=== PATIENT | male | born 1935 | race Caucasian/White ===

== ENCOUNTER 2017-02-13 09:31 | Inpatient (IN) | payer MEDICARE ==
[~2017-02-13] VITALS: Ht 190.5 cm; Wt 105.7 kg
[~2017-02-13 09:31] MED LIST: ACET25TA4 PO; GLIP10TA6 PO; LEVO100T5 PO; METF1000 PO; PROP60TA PO; ZOLP5TAB3 PO
[2017-02-13] MEDS ORDERED: LAMO100T PO (10:27)
[2017-02-13] MEDS ORDERED: SPIRCAP INH (10:27)
[2017-02-13 10:29] VITALS: BP 152/77; PULSE 62; RESP 20; TEMP 97.8; O2SAT 95
[2017-02-13] MEDS ORDERED: SODIUM CHLORIDE 0.9% INJ 100 ML ONE ×2 (10:45)
[2017-02-13] MEDS ORDERED: ceFAZolin INJ 1,000 MG VIAL ONE (10:45)
[2017-02-13] MEDS ORDERED: ceFAZolin 1,000 MG/NS 100 ML IV SCH ×2 (10:45)
[2017-02-13] MEDS ORDERED: LACTATED RINGER'S 1000 ML INJ 1,000 ML IV SCH (10:45)
[2017-02-13] MEDS ORDERED: CLINDAMYCIN PHOS 600 MG/4 ML VIAL ONE (10:45)
[2017-02-13 10:51] LABS: AUTOMATED NEUTROPHIL # 5.7 TH/MM3 (1.8-7.7); BASOPHIL # 0.1 TH/MM3 (0-0.2); BASOPHIL % 1.1 % (0.0-2.0); EOSINOPHIL # 0.7 TH/MM3 (0-0.4); EOSINOPHIL % 8.1 % (0.0-4.0); HEMO FLAGS DIFF FINAL; LYMPHOCYTE # 1.9 TH/MM3 (1.0-4.8); MEAN CELL VOLUME 88.4 FL (80.0-100.0); MEAN CORPUSCULAR HEMOGLOBIN 30.2 PG (27.0-34.0); MEAN CORPUSCULAR HGB CONC 34.2 % (32.0-36.0); MONO % 7.2 % (0.0-8.0); NEUT % 62.6 % (16.0-70.0); PLATELET COUNT 296 TH/MM3 (150-450); RED CELL DISTRIBUTION WIDTH 12.9 % (11.6-17.2); WHITE BLOOD COUNT 9.1 TH/MM3 (4.0-11.0)
[2017-02-13 11:00] LABS: PROTHROMBIN TIME - PATIENT 11.6 SEC (9.8-11.6)
[2017-02-13 11:01] LABS: APTT (PATIENT) 28.5 SEC (24.3-30.1)
[2017-02-13 11:06] LABS: BICARBONATE 26.4 MEQ/L (21.0-32.0); POTASSIUM 4.7 MEQ/L (3.5-5.1)
--- NOTE | 2017-02-13 11:19 | RADRPT ---
EXAM DATE/TIME: 02/13/2017 10:47 [facility] COMPARISON: No previous studies available for comparison. INDICATIONS : Evaluate for pneumonia, pneumothorax, or communicable disease. Pre op for cervical surgery today. MEDICAL HISTORY : Hypertension. Carcinoma, prostatic. Diabetes. SURGICAL HISTORY : None. ENCOUNTER: Initial ACUITY: 1 day PAIN SCORE: 0/10 LOCATION: Bilateral chest FINDINGS: The exam demonstrates mild elevation of the left hemidiaphragm. The lungs are clear. The heart is nor mal in size. Visualized bony structures are intact. CONCLUSION: 1. Mild elevation of the left hemidiaphragm. No acute abnormality. Kasi Curtis MD on February 13, 2017 at 11:16 Board Certified Radiologist. This report was verified electronically.
[2017-02-13] MEDS ORDERED: ONDANSETRON HCL 4 MG/2 ML VIAL IV PUSH ONE (12:00)
[2017-02-13] MEDS ORDERED: NORMOSOL R INJ 1,000 ML IV ONE (12:00)
[2017-02-13] MEDS ORDERED: PROPOFOL 200 MG/20 ML AMP IV ONE (12:00)
[2017-02-13] MEDS ORDERED: ePHEDrine/NS 25 MG/5 ML SYR IV ONE (12:00)
[2017-02-13] MEDS ORDERED: GADODIAMIDE PF 287 MG/ML 20 ML VIAL (for RAD MRI) IV ONE (12:44)
[2017-02-13] MEDS ORDERED: GENTAMICIN SULFATE 80 MG/2 ML VIAL ONE (12:57)
[2017-02-13] MEDS ORDERED: THROMBIN (TOPICAL) 5,000 UNIT VIAL ONE (12:57)
[2017-02-13] MEDS ORDERED: LIDOCAINE 1%/EPINEPHrine 1:100,000 SOLN 20 ML VIAL ONE (12:57)
[2017-02-13] MEDS ORDERED: GELFOAM SIZE 100 ONE (12:57)
[2017-02-13] MEDS ORDERED: MIDAZOLAM HCL 2 MG/2 ML VIAL ONE (13:05)
[2017-02-13] MEDS ORDERED: FAMOTIDINE 20 MG/2 ML VIAL ONE (13:05)
[2017-02-13] MEDS ORDERED: fentaNYL CITRATE 250 MCG/5 ML AMP ONE ×2 (13:05→17:10)
[2017-02-13] MEDS ORDERED: ACETAMINOPHEN 1000 MG/100 ML VIAL IV ONE (13:05)
--- NOTE | 2017-02-13 14:28 | RADRPT ---
EXAM DATE/TIME: 02/13/2017 11:56 [facility] COMPARISON: No previous studies available for comparison. INDICATIONS : Myelopathy. Inability to walk. CONTRAST: 20 cc Omniscan (gadodiamide) IV MEDICAL HISTORY : Carcinoma, prostate. SURGICAL HISTORY : Angioplasty. ENCOUNTER: Initial ACUITY: 3 day PAIN SCORE: 0/10 LOCATION: t-spine TECHNIQUE: Multiplanar multisequence MRI of the thoracic spine was performed. FINDINGS: VERTEBRA: The marrow signal in the thoracic vertebrae is inhomogeneous in nonspecific fashion. I do not see f ocal metastatic disease. There is mild uncinate ridging at T1-T2 and T2-T3 with moderate spinal stenosis. There is mild ridgi ng at T7-T8 with mild spinal stenosis. CONCLUSION: Mild spinal stenosis the upper thoracic spine. This does not appear to be significan t enough to cause neuropathy. MRI of the cervical spine may be of benefit. There appear to be signi ficant degenerative changes in the cervical spine on the airport maintenance laborer film. Ezekiel Curtis MD FACR on February 13, 2017 at 14:21 Board Certified Radiologist. This report was verified electronically.
--- NOTE | 2017-02-13 14:39 | EKG ---
Date Performed: 02/13/2017 Time Performed: 10:54:52 PTAGE: 81 years EKG: Sinus rhythm MARKED LEFT AXIS DEVIATION ABNORMAL ECG NO PREVIOUS TRACING DOCTOR: Abiodun sEquivel Interpretating Date/Time 02/13/2017 14:37:08
[2017-02-13] MEDS ORDERED: *morphine SULFATE 8 MG/ML PERIprocedure ONLY ONE (17:27)
[2017-02-13] MEDS: 1/2 NS + KCL 20 MEQ INJ 1,000 ML IV SCH (17:39)
[2017-02-13] MEDS ORDERED: SODIUM CHLORIDE 0.9% FLUSH 5 ML FLUSH IVF PRN (17:45)
--- NOTE | 2017-02-13 17:46 | RADRPT ---
EXAM DATE/TIME: 02/13/2017 14:15 [facility] COMPARISON: No previous studies available for comparison. INDICATIONS : Neck pain. MEDICAL HISTORY : None. SURGICAL HISTORY : None. ENCOUNTER: Initial ACUITY: 1 day PAIN SCORE: Non-responsive. LOCATION: Bilateral neck FINDINGS: Two projection examination was performed. Status post anterior cervical lower cervical spine. There a ppears to be good alignment of the fusion. The hardware is grossly intact.. CONCLUSION: Good position and alignment on this postoperative study. Marcus Freeman MD on February 13, 2017 at 17:43 Board Certified Radiologist. This report was verified electronically.
[2017-02-13] MEDS ORDERED: HYDROmorphone HCL PF 1 MG/ML VIAL IV PRN (18:30)
[2017-02-13] MEDS ORDERED: MORPHINE SULFATE 4 MG/ML INJ IV PRN (18:30)
[2017-02-13] MEDS ORDERED: DEXTROSE 50% IN WATER 50 ML VIAL(D50) IV PUSH PRN (18:30)
[2017-02-13] MEDS ORDERED: GLUCAGON 1 MG/ML VIAL OTHER PRN (18:30)
[2017-02-13] MEDS ORDERED: NALOXONE HCL 0.4 MG/ML AMP IV PRN (18:30)
[2017-02-13 18:34] LABS: AUTOMATED NEUTROPHIL # 10.5 TH/MM3 (1.8-7.7); BASOPHIL # 0.1 TH/MM3 (0-0.2); BASOPHIL % 1.2 % (0.0-2.0); EOSINOPHIL # 0.1 TH/MM3 (0-0.4); HEMATOCRIT 37.2 % (39.0-51.0); HEMO FLAGS DIFF FINAL; LYMPH % 6.5 % (9.0-44.0); LYMPHOCYTE # 0.8 TH/MM3 (1.0-4.8); MEAN CELL VOLUME 89.3 FL (80.0-100.0); MEAN CORPUSCULAR HGB CONC 33.6 % (32.0-36.0); MONO % 2.7 % (0.0-8.0); NEUT % 88.6 % (16.0-70.0); PLATELET COUNT 260 TH/MM3 (150-450); RED BLOOD COUNT 4.17 MIL/MM3 (4.50-5.90); RED CELL DISTRIBUTION WIDTH 12.8 % (11.6-17.2); WHITE BLOOD COUNT 11.8 TH/MM3 (4.0-11.0)
[2017-02-13 18:52] LABS: BICARBONATE 24.2 MEQ/L (21.0-32.0); POTASSIUM 5.1 MEQ/L (3.5-5.1)
[2017-02-13 19:08] VITALS: BP 189/83; PULSE 61; RESP 18; TEMP 96.7; O2SAT 94
--- NOTE | 2017-02-13 19:20 | PD.OP ---
Operative Report Date of Surgery: February 13, 2017 Preoperative Diagnosis: (1) Cervical disc disease with myelopathy 1. Cervical spondylosis and degenerative disc disease 2. Cervical myelopathy 3. Cervical stenosis Postoperative Diagnosis: (1) Cervical disc disease with myelopathy 1. Cervical spondylosis and degenerative disc disease 2. Cervical myelopathy 3. Cervical stenosis Procedure: 1. C6-7 anterior cervical discectomy, resection posterior osteophyte disc complex for spinal cord decompression, bilateral foraminotomy-microtechnique 2. C6-7 anterior cervical interbody fusion, composite allograft bone 3. C6-7 anterior cervical instrumentation Anesthesia: Gen. endotracheal Surgeon: Martin Alvarez Practice Office Associate(s): Linden Olsen Operation and Findings: Procedure in detail: The patient was brought into the operating room and positioned in supine position on the 3080 table with the head and neck in neutral position. Saba catheter was placed. Lines were established by Anesthesia. Gen. endotracheal anesthesia was induced without difficulty, taking care not to significantly flex or extend the patient's neck during intubation and positioning. Leads for intraoperative neuro monitoring were placed and a baseline study obtained. All extremities were appropriately padded. The neck and upper chest were shaved with clippers and sterilely prepped and draped. Appropriate timeout procedure was performed with all personnel present and in agreement 1% Xylocaine with epinephrine was used for local infiltration over the incision site which was made transversely at the left C6-7 level and carried sharply down through the platysma muscle. The exposure was continued medial to the sternocleidomastoid muscle and carotid artery, and lateral to the trachea and esophagus. The prevertebral fascia was elevated away from the anterior longitudinal ligament with a Kitner sponge. The longus coli muscle on each side was elevated with the Monge elevator. The self-retaining retractor was placed with the blades beneath the longus coli muscle on each side. The appropriate levels were confirmed with intraoperative C-arm and preoperative imaging studies. The microscope was brought into place and used for the remainder of the procedure including the closure. The 14 mm distraction pins were used as needed for gentle distraction during the procedure. The procedure was performed at the C6-7 level. The anterior osteophyte was resected with the Leksell rongeur. The disc and annulus was incised with a 15 blade knife and discectomy performed with pituitary biopsy forceps and straight and angled curettes. The TPS drill with the 5 mm barrel bur was used to decorticate the endplates and removed the majority of the osteophyte along the anterior spinal canal as well as the right and left uncovertebral joint. The thin ligament dissector was used to free up the posterior annulus and ligament from the vertebral body margin. The remainder of the resection of the posterior annulus and ligament as well as the posterior osteophyte and bilateral uncovertebral joint was performed with the 2 and 3 mm thin footplate Kerrison rongeurs. A component of herniated nucleus pulposus was encountered posterior to the annulus and was lifted away from the thecal sac with the thickened ligament dissector and removed. There was a large area of calcified posterior longitudinal ligament just posterior to the superior left C7 vertebral body causing severe compression on the anterior thecal sac. This was carefully freed up and lifted from the thecal sac and adjacent vertebral body with a thin ligament dissector and further resected with the thin footplate Kerrison rongeur. Significant posterior osteophyte was encountered and extensively removed. The posterior vertebral bodies were undercut with the Kerrison rongeur and the TPS drill with the 4 mm jd bur as needed to fully decompress the anterior spinal canal. The appropriate size 9 mm V G2 bone graft was then placed at each level with a good fit of the graft. The blunt nerve hook was used to probe beneath the bone graft to ensure that there was no impingement on the thecal sac or exiting nerve roots. The appropriate size Precision anterior cervical plate was then chosen and the bone screws were placed with the 14 mm fixed screws at the caudal most level and the 14 mm variable screws at the cephalad level of the decompression. The screws were firmly secured and the locking cams engaged. The entire construct was checked with intraoperative C-arm and felt to be satisfactory. The 10 Serbian drain was brought out through a small incision in the left lower neck and secured to the skin with nylon suture and attached to sterile suction. The closure was performed with 3-0 Vicryl running for the platysma and interrupted for the subcutaneous closure, with 4-0 Vicryl running for the subcuticular closure. A dressing of sterile Mastisol, Steri-Strips, and Primapore dressing was placed. The patient was placed into a cervical collar, and taken to recovery room in stable condition. All counts were correct at the end of the case. Estimated blood loss was 100 cc No specimen was sent to pathology. Intraoperative neuro monitoring remained stable during the procedure. Martin Alvarez MD February 13, 2017 19:20
[2017-02-13 19:40] VITALS: O2SAT 95
[2017-02-13] MEDS: lamoTRIgine 100 MG TAB PO SCH (19:52)
[2017-02-13] MEDS: PROPRANOLOL HCL LA 60 MG CAP PO SCH (19:52)
[2017-02-13] MEDS: ACETAMINOPHEN/HYDROcodone 325 MG/10 MG TAB PO PRN ×2 (19:53→23:57)
[2017-02-13] MEDS: INSULIN NovoLIN REGULAR SUPPLEMENTAL SCALE SQ SCH (20:12)
[2017-02-13] MEDS: SODIUM CHLORIDE 0.9% FLUSH 5 ML FLUSH IVF SCH (21:00)
[2017-02-13] MEDS ORDERED: [UNRECOGNIZED DRUG - OTHER] PO SCH (21:00)
[2017-02-13] MEDS: ZOLPIDEM TARTRATE 5 MG TAB PO PRN (22:28)
[2017-02-14] VITALS (7 sets, daily range): BP systolic 125–169; BP diastolic 60–82; PULSE 58–74; RESP 18–19; TEMP 95.3–97.3; O2SAT 93–98
[2017-02-14] MEDS: LEVOTHYROXINE SODIUM 100 MCG TAB PO SCH (05:24)
[2017-02-14] MEDS: ACETAMINOPHEN/HYDROcodone 325 MG/5 MG TAB PO PRN ×3 (05:25→18:55)
[2017-02-14] MEDS: INSULIN NovoLIN REGULAR SUPPLEMENTAL SCALE SQ SCH ×4 (06:30→20:18)
[2017-02-14 07:22] LABS: AUTOMATED NEUTROPHIL # 10.6 TH/MM3 (1.8-7.7); BASOPHIL % 0.3 % (0.0-2.0); EOSINOPHIL % 0.1 % (0.0-4.0); HEMATOCRIT 36.8 % (39.0-51.0); HEMO FLAGS DIFF FINAL; LYMPH % 9.3 % (9.0-44.0); LYMPHOCYTE # 1.2 TH/MM3 (1.0-4.8); MEAN CORPUSCULAR HEMOGLOBIN 30.1 PG (27.0-34.0); MEAN CORPUSCULAR HGB CONC 33.5 % (32.0-36.0); MONO % 6.6 % (0.0-8.0); NEUT % 83.7 % (16.0-70.0); PLATELET COUNT 297 TH/MM3 (150-450); RED BLOOD COUNT 4.09 MIL/MM3 (4.50-5.90); RED CELL DISTRIBUTION WIDTH 12.7 % (11.6-17.2); WHITE BLOOD COUNT 12.6 TH/MM3 (4.0-11.0)
[2017-02-14 07:52] LABS: BICARBONATE 28.3 MEQ/L (21.0-32.0); POTASSIUM 4.6 MEQ/L (3.5-5.1)
[2017-02-14] MEDS: metFORMIN HCL 500 MG TAB PO SCH ×2 (08:30→17:55)
[2017-02-14] MEDS: lamoTRIgine 100 MG TAB PO SCH ×2 (08:30→20:19)
[2017-02-14] MEDS: glipiZIDE 10 MG TAB PO SCH (08:30)
[2017-02-14] MEDS: PROPRANOLOL HCL LA 60 MG CAP PO SCH ×2 (08:30→20:21)
[2017-02-14] MEDS: TIOTROPIUM BROMIDE 18 MCG INH INH SCH (09:00)
[2017-02-14] MEDS: SODIUM CHLORIDE 0.9% FLUSH 5 ML FLUSH IVF SCH ×2 (09:00→20:21)
--- NOTE | 2017-02-14 10:55 | HHI.NSPN ---
(Thang Davidson) Note Status Status: Progress Note (Thang Davidson) Interval History Interval History 02/13: The patient presented to the operating for an ACDF at the C6-7 level. Post -operatively he was admitted to a regular med/surg floor. 02/14: This morning the patient is awake & alert. He has some aching to the back of the neck. He does endorse some hoarseness but no difficulty swallowing. During the night he did have an episode that he describe like an electric shock that went from the neck down to the necks but has not had anything similar since. He does endorse intermittent numbness to the extremities. He stated Occupational Therapy felt the patient had some upper extremity weakness but he did not feel he did. (Thang Davidson) Labs, Micro, & Vital Signs Results Allergies Coded Allergies Type Severity Reaction Last Updated Verified No Known Allergies 02/10/17 No Recent Impressions Thoracic Spine MRI 02/13/17 1018 Signed Impressions: Service Date/Time: Monday, February 13, 2017 11:56 - CONCLUSION: Mild spinal stenosis the upper thoracic spine. This does not appear to be significant enough to cause neuropathy. MRI of the cervical spine may be of benefit. There appear to be significant degenerative changes in the cervical spine on the performance test engineer film. Ezekiel Curtis MD FACR Chest X-Ray 02/13/17 1018 Signed Impressions: Service Date/Time: Monday, February 13, 2017 10:47 - CONCLUSION: 1. Mild elevation of the left hemidiaphragm. No acute abnormality. Kasi Curtis MD Cervical Spine X-Ray 02/13/17 0000 Signed Impressions: Service Date/Time: Monday, February 13, 2017 14:15 - CONCLUSION: Good position and alignment on this postoperative study. Marcus Freeman MD //////175/// 06:00 18:00 06:00 18:00 06:00 18:00 Intake Total 800 ml 460 ml 480 ml Output Total 450 ml 565 ml 790 ml Balance 350 ml -105 ml -310 ml Intake Oral 360 ml 480 ml IV Total 100 ml Other 800 ml Output Urine Total 350 ml 525 ml 775 ml Drainage Total 40 ml 15 ml Estimated Blood Loss 100 ml # Bowel Movements 0 0 Laboratory Tests Test 02/13/17 02/13/17 02/14/17 10:30 18:21 05:47 White Blood Count 9.1 TH/MM3 11.8 TH/MM3 12.6 TH/MM3 Red Blood Count 4.30 MIL/MM3 4.17 MIL/MM3 4.09 MIL/MM3 Hemoglobin 13.0 GM/DL 12.5 GM/DL 12.3 GM/DL Hematocrit 38.0 % 37.2 % 36.8 % Mean Corpuscular Volume 88.4 FL 89.3 FL 90.0 FL Mean Corpuscular Hemoglobin 30.2 PG 30.0 PG 30.1 PG Mean Corpuscular Hemoglobin 34.2 % 33.6 % 33.5 % Concent Red Cell Distribution Width 12.9 % 12.8 % 12.7 % Platelet Count 296 TH/MM3 260 TH/MM3 297 TH/MM3 Mean Platelet Volume 7.8 FL 7.5 FL 7.7 FL Neutrophils (%) (Auto) 62.6 % 88.6 % 83.7 % Lymphocytes (%) (Auto) 21.0 % 6.5 % 9.3 % Monocytes (%) (Auto) 7.2 % 2.7 % 6.6 % Eosinophils (%) (Auto) 8.1 % 1.0 % 0.1 % Basophils (%) (Auto) 1.1 % 1.2 % 0.3 % Neutrophils # (Auto) 5.7 TH/MM3 10.5 TH/MM3 10.6 TH/MM3 Lymphocytes # (Auto) 1.9 TH/MM3 0.8 TH/MM3 1.2 TH/MM3 Monocytes # (Auto) 0.7 TH/MM3 0.3 TH/MM3 0.8 TH/MM3 Eosinophils # (Auto) 0.7 TH/MM3 0.1 TH/MM3 0.0 TH/MM3 Basophils # (Auto) 0.1 TH/MM3 0.1 TH/MM3 0.0 TH/MM3 CBC Comment DIFF FINAL DIFF FINAL DIFF FINAL Differential Comment Prothrombin Time 11.6 SEC Prothromb Time International 1.0 RATIO Ratio Activated Partial 28.5 SEC Thromboplast Time Sodium Level 136 MEQ/L 133 MEQ/L 135 MEQ/L Potassium Level 4.7 MEQ/L 5.1 MEQ/L 4.6 MEQ/L Chloride Level 102 MEQ/L 101 MEQ/L 99 MEQ/L Carbon Dioxide Level 26.4 MEQ/L 24.2 MEQ/L 28.3 MEQ/L Anion Gap 8 MEQ/L 8 MEQ/L 8 MEQ/L Blood Urea Nitrogen 13 MG/DL 12 MG/DL 12 MG/DL Creatinine 0.96 MG/DL 0.90 MG/DL 0.85 MG/DL Estimat Glomerular Filtration 76 ML/MIN 81 ML/MIN 87 ML/MIN Rate Random Glucose 235 MG/DL 249 MG/DL 240 MG/DL Calcium Level 9.7 MG/DL 8.5 MG/DL 8.9 MG/DL Constitutional Vital Signs Date Time Temp Pulse Resp B/P Pulse Ox O2 Delivery O2 Flow Rate FiO2 02/14/17 08:00 95.3 63 19 140/63 96 02/14/17 04:09 96.6 74 18 144/68 93 02/14/17 00:15 96.8 61 18 158/71 94 02/13/17 19:40 95 21 02/13/17 19:08 96.7 61 18 189/83 94 02/13/17 18:30 97.6 64 16 150/72 95 Room Air 02/13/17 18:15 65 15 151/73 94 Room Air 02/13/17 18:00 66 15 153/74 100 Nasal Cannula 2 02/13/17 17:45 65 15 155/79 99 Nasal Cannula 2 02/13/17 17:32 15 02/13/17 17:30 67 15 159/76 98 Nasal Cannula 2 02/13/17 17:15 69 14 161/77 98 Nasal Cannula 4 02/13/17 17:05 98.5 71 12 160/74 96 Nasal Cannula 4 02/14/17 07:00 Intake Total 1740 ml Output Total 1790 ml Balance -50 ml (Thang Davidson) Review of Systems/Exam ROS Constitutional: Patient denies any fever or chills. HEENT: Patient states that he has some hoarseness. He denies any difficulty swallowing and states that he was able to swallow a cracker earlier when tested. Neck: Patient states that he has some aching to the back of the neck. Respiratory: Patient denies any shortness of breath or productive cough. Cardiovascular: Patient denies chest pain, palpitations or irregular heart beat. Gastrointestinal: Patient denies any abdominal pain, nausea, vomiting or bowel incontinence. Genitourinary: Patient states that he has a catheter in place. Extremities: Patient states Occupational Therapy said he was a little weak in the arms but he states it feels normal. He denies any pain to the extremities. Neurological: Patient has had some intermittent numbness to the extremities that comes and goes. He did have an electric shock feeling last night from the neck down to the knees once. He denies any headache or dizziness. Exam General: Awake, readily interacts, normal affect, smiles readily, NAD. Neck: [place] J cervical collar in place. Mild midline TTP, no step offs or deformities, no JVD, trachea midline, intact post-surgical dressing to left anterior neck w/ERICK drain to bulb suction w/serosanguinous drainage. Respiratory: CTAB w/o W/R/R, equal excursion, non-laboured, on RA. Cardiovascular: S1S2 w/RRR w/o M/G/R, radial & pedal pulses 2+ bilaterally, cap refill < 2 sec, no pedal edema. Gastrointestinal: Abdomen soft, nontender, bowel sounds not appreciated. Genitourinary: Saba catheter to BSD w/clear yellow urine. Extremities: REDMAN, NTTP, no evident deformity, discolouration or clubbing. Neurological: AAOx3 Speech clear & appropriate Follows simple commands Sensation decreased to left forearm and BLE. Motor strength: bilateral biceps 5/5, right deltoid & tricep 5/5, left deltoid & tricep 4/5, right hand intrinsics & extensors 4/5 and left 3+/5, right planter extension 4+/5 otherwise BLE 5/5 (Thang Davidson) Medications Current Medications Current Medications Medications (Trade) Dose Ordered Sig/Lyudmila Route Start Time Stop Time Status Last Admin (Lr 1000 ml Inj) 1,000 ml @ 0 mls/hr Q0M IV 02/13/17 10:45 (NS Flush) 2 ml UNSCH PRN IVF 02/13/17 17:45 IV Flush 2 ml 2 ml BID IVF 02/13/17 21:00 (1/2 NS + KCl 20 Meq Inj) 1,000 ml @ 100 mls/hr Q10H IV 02/13/17 17:39 02/13/17 17:39 (Glucotrol) 10 mg DAILY PO 02/14/17 09:00 02/14/17 08:30 (LaMICtal) 100 mg BID PO 02/13/17 21:00 02/14/17 08:30 (Synthroid) 100 mcg DAILY@06 PO 02/14/17 06:00 02/14/17 05:24 (Glucophage) 1,000 mg BIDPC PO 02/14/17 09:00 02/14/17 08:30 (Spiriva Inh) 18 mcg DAILY INH 02/14/17 09:00 (Ambien) 5 mg HS PRN PO 02/13/17 18:15 02/13/17 22:28 Patient Own Medication PT OWN MED: Acetaminophen Pm Extra ... HS PO 02/13/17 21:00 Hold (Inderal La) 60 mg Q12HR PO 02/13/17 21:00 02/14/17 08:30 ([place] 5-325 Mg) 1 tab Q4H PRN PO 02/13/17 18:30 02/14/17 05:25 ([place] 10-325 Mg) 1 tab Q4H PRN PO 02/13/17 18:30 02/13/17 23:57 (Dilaudid Pf Inj) 0.5 mg Q3H PRN IV 02/13/17 18:30 (Morphine Inj) 4 mg Q3H PRN IV 02/13/17 18:30 (Narcan Inj) 0.4 mg UNSCH PRN IV 02/13/17 18:30 (D50w (Vial) Inj) 25 ml UNSCH PRN IV PUSH 02/13/17 18:30 (Glucagon Inj) 1 mg UNSCH PRN OTHER 02/13/17 18:30 (Thang Davidson) Medical Decision Making MDM Remarks (1) Cervical disc disease with myelopathy 1. Cervical spondylosis and degenerative disc disease 2. Cervical myelopathy 3. Cervical stenosis POD # 1 s/p (): 1. C6-7 anterior cervical discectomy, resection posterior osteophyte disc complex for spinal cord decompression, bilateral foraminotomy-microtechnique 2. C6-7 anterior cervical interbody fusion, composite allograft bone 3. C6-7 anterior cervical instrumentation Mild upper thoracic spine stenosis per MRI thoracic spine (Thang Davidson) Plan Plan Remarks Speech Therapy for swallowing PT & OT eval Rehab for additional therapy, inpatient vs SNF Consider d/c'ing the ERICK drain (Thang Davidson) Attending Statement I have personally seen and examined the patient on the date of this note. Pertinent documentation and study results have been reviewed by the undersigned. I have personally developed the treatment plan and performed medical decision making. Agree with findings, exam, and treatment plan as noted above. Patient feels that his legs are somewhat weaker than preoperative. Examination today reveals mostly 3/5 proximal and 4/5 distal or extremity motor function. Have advised a postoperative MRI of the cervical spine to assess the degree of cord compression and edema. Patient is in agreement. Continue therapies (Martin Alvarez MD) Thang Davidson February 14, 2017 10:54 Martin Alvarez MD February 15, 2017 20:38
[2017-02-14] MEDS: ZOLPIDEM TARTRATE 5 MG TAB PO PRN (23:10)
[2017-02-14] MEDS: ACETAMINOPHEN/HYDROcodone 325 MG/10 MG TAB PO PRN (23:10)
[2017-02-14] MEDS: 1/2 NS + KCL 20 MEQ INJ 1,000 ML IV SCH (23:11)
[2017-02-15 00:19] VITALS: BP 149/62; PULSE 72; RESP 18; TEMP 97.7; O2SAT 95
[2017-02-15] MEDS: LEVOTHYROXINE SODIUM 100 MCG TAB PO SCH (06:12)
[2017-02-15] MEDS: ACETAMINOPHEN/HYDROcodone 325 MG/10 MG TAB PO PRN ×3 (06:13→21:42)
[2017-02-15] MEDS: INSULIN NovoLIN REGULAR SUPPLEMENTAL SCALE SQ SCH ×4 (06:31→21:00)
[2017-02-15 08:00] VITALS: BP 153/68; PULSE 70; RESP 19; TEMP 98.1; O2SAT 92
[2017-02-15] MEDS: PROPRANOLOL HCL LA 60 MG CAP PO SCH ×2 (09:00→21:42)
[2017-02-15] MEDS: TIOTROPIUM BROMIDE 18 MCG INH INH SCH (09:00)
[2017-02-15] MEDS: SODIUM CHLORIDE 0.9% FLUSH 5 ML FLUSH IVF SCH ×2 (09:00→21:00)
[2017-02-15] MEDS: lamoTRIgine 100 MG TAB PO SCH ×2 (09:35→21:42)
[2017-02-15] MEDS: glipiZIDE 10 MG TAB PO SCH (09:35)
[2017-02-15] MEDS: metFORMIN HCL 500 MG TAB PO SCH ×2 (09:35→17:08)
[2017-02-15] MEDS: 1/2 NS + KCL 20 MEQ INJ 1,000 ML IV SCH ×2 (09:39→19:39)
[2017-02-15 12:00] VITALS: BP 153/64; PULSE 69; RESP 20; TEMP 98.4; O2SAT 94
[2017-02-15 16:00] VITALS: BP 125/67; PULSE 80; RESP 18; TEMP 97.5; O2SAT 94
--- NOTE | 2017-02-15 17:05 | HHI.NSPN ---
(Thang Davidson) Note Status Status: Progress Note (Thang Davidson) Interval History Interval History 02/13: The patient presented to the operating for an ACDF at the C6-7 level. Post -operatively he was admitted to a regular med/surg floor. 02/14: This morning the patient is awake & alert. He has some aching to the back of the neck. He does endorse some hoarseness but no difficulty swallowing. During the night he did have an episode that he describe like an electric shock that went from the neck down to the necks but has not had anything similar since. He does endorse intermittent numbness to the extremities. He stated Occupational Therapy felt the patient had some upper extremity weakness but he did not feel he did. 02/15: The patient is doing well when seen this afternoon. He states his neck feels stiff. He did have some dizziness earlier but relates it to not eating since he is diabetic. The dizziness resolved after he ate. He did endorse some difficulty swallowing once when he took a bite of hamburger, but none since. ( Thang Davidson) Labs, Micro, & Vital Signs Constitutional Vital Signs Date Time Temp Pulse Resp B/P Pulse Ox O2 Delivery O2 Flow Rate FiO2 02/15/17 16:00 97.5 80 18 125/67 94 02/15/17 12:00 98.4 69 20 153/64 94 02/15/17 08:00 98.1 70 19 153/68 92 02/15/17 00:19 97.7 72 18 149/62 95 02/14/17 20:13 96.3 66 19 125/60 96 02/15/17 07:00 Intake Total 1440 ml Output Total 1535 ml Balance -95 ml (Thang Davidson) Review of Systems/Exam ROS Constitutional: Patient denies any fever or chills. HEENT: Patient states that he has a little hoarseness. He states he did choke once briefly when he first tried to eat a hamburger, otherwise he has not had any difficulty swallowing. Neck: Patient states that his neck is stiff. Respiratory: Patient denies any shortness of breath or productive cough. Cardiovascular: Patient denies chest pain, palpitations or irregular heart beat. Gastrointestinal: Patient denies any abdominal pain, nausea, vomiting or bowel incontinence. Genitourinary: Patient states the catheter was recently removed. Extremities: Patient denies any pain & weakness to the extremities. Neurological: Patient did have dizziness prior to eating which he relates to being diabetic, it resolved after he ate. He denies any headache, numbness or tingling. Exam General: Awake, readily interacts, normal affect, smiles readily, NAD. Neck: [place] J cervical collar in place. Midline neck feels stiff to palpation, no JVD, trachea midline, intact post-surgical dressing to left anterior neck w/ ERICK drain to bulb suction w/serosanguinous drainage. Respiratory: CTAB w/o W/R/R, equal excursion, non-laboured, on RA. Cardiovascular: S1S2 w/RRR w/o M/G/R, radial & pedal pulses 2+ bilaterally, cap refill < 2 sec, no pedal edema. Gastrointestinal: Abdomen soft, nontender, bowel sounds not appreciated. Extremities: [place], NTTP, no evident deformity, discolouration or clubbing. Neurological: AAOx3 Speech clear & appropriate Follows simple commands Sensation decreased to left forearm and BLE. Motor strength: bilateral biceps 5/5, right deltoid & tricep 5/5, left deltoid & tricep 4/5, right planter extension 4+/5 otherwise BLE 5/5 (Thang Davidson) Medications Current Medications Current Medications Medications (Trade) Dose Ordered Sig/Lyudmila Route Start Time Stop Time Status Last Admin (Lr 1000 ml Inj) 1,000 ml @ 0 mls/hr Q0M IV 02/13/17 10:45 (NS Flush) 2 ml UNSCH PRN IVF 02/13/17 17:45 IV Flush 2 ml 2 ml BID IVF 02/13/17 21:00 02/15/17 09:00 (1/2 NS + KCl 20 Meq Inj) 1,000 ml @ 100 mls/hr Q10H IV 02/13/17 17:39 02/13/17 17:39 (Glucotrol) 10 mg DAILY PO 02/14/17 09:00 02/15/17 09:35 (LaMICtal) 100 mg BID PO 02/13/17 21:00 02/15/17 09:35 (Synthroid) 100 mcg DAILY@06 PO 02/14/17 06:00 02/15/17 06:12 (Glucophage) 1,000 mg BIDPC PO 02/14/17 09:00 02/15/17 09:35 (Spiriva Inh) 18 mcg DAILY INH 02/14/17 09:00 02/14/17 09:00 (Ambien) 5 mg HS PRN PO 02/13/17 18:15 02/14/17 23:10 Patient Own Medication PT OWN MED: Acetaminophen Pm Extra ... HS PO 02/13/17 21:00 Hold (Inderal La) 60 mg Q12HR PO 02/13/17 21:00 02/15/17 09:00 ([place] 5-325 Mg) 1 tab Q4H PRN PO 02/13/17 18:30 02/14/17 18:55 ([place] 10-325 Mg) 1 tab Q4H PRN PO 02/13/17 18:30 02/15/17 11:14 (Dilaudid Pf Inj) 0.5 mg Q3H PRN IV 02/13/17 18:30 (Morphine Inj) 4 mg Q3H PRN IV 02/13/17 18:30 (Narcan Inj) 0.4 mg UNSCH PRN IV 02/13/17 18:30 (D50w (Vial) Inj) 25 ml UNSCH PRN IV PUSH 02/13/17 18:30 (Glucagon Inj) 1 mg UNSCH PRN OTHER 02/13/17 18:30 (Thang Davidson) Medical Decision Making MDM Remarks (1) Cervical disc disease with myelopathy 1. Cervical spondylosis and degenerative disc disease 2. Cervical myelopathy 3. Cervical stenosis POD # 1 s/p (): 1. C6-7 anterior cervical discectomy, resection posterior osteophyte disc complex for spinal cord decompression, bilateral foraminotomy-microtechnique 2. C6-7 anterior cervical interbody fusion, composite allograft bone 3. C6-7 anterior cervical instrumentation Mild upper thoracic spine stenosis per MRI thoracic spine Patient is neurologically intact ERICK drain with 35 mL out this morning at 0700, no output record since, will discuss with Dr Alvarez (Thang Davidson) Plan Plan Remarks Speech Therapy for swallowing PT & OT Patient accepted at [facility] to transfer there in AM Drain care (Thang Davidson) Attending Statement I have personally seen and examined the patient on the date of this note. Pertinent documentation and study results have been reviewed by the undersigned. I have personally developed the treatment plan and performed medical decision making. Agree with findings, exam, and treatment plan as noted above. Persistent lower extremity weakness postoperatively. Patient also has lumbar stenosis but does not appear severe enough to create the lower extremity motor deficit. MRI cervical spine postoperative exam ordered. (Martin Alvarez MD) Thang Davidson February 15, 2017 17:05 Martin Alvarez MD February 15, 2017 20:39
[2017-02-15 19:40] VITALS: BP 141/64; PULSE 83; RESP 19; TEMP 97.9; O2SAT 94
[2017-02-15] MEDS: ZOLPIDEM TARTRATE 5 MG TAB PO PRN (21:46)
[2017-02-16 00:13] VITALS: BP 132/60; PULSE 86; RESP 18; TEMP 98.3; O2SAT 96
[2017-02-16] MEDS: PROPRANOLOL HCL LA 60 MG CAP PO SCH ×2 (01:08→21:20)
[2017-02-16] MEDS: 1/2 NS + KCL 20 MEQ INJ 1,000 ML IV SCH ×3 (01:40→23:26)
[2017-02-16] MEDS: LEVOTHYROXINE SODIUM 100 MCG TAB PO SCH (06:22)
[2017-02-16] MEDS: ACETAMINOPHEN/HYDROcodone 325 MG/10 MG TAB PO PRN ×4 (06:23→22:10)
[2017-02-16] MEDS: INSULIN NovoLIN REGULAR SUPPLEMENTAL SCALE SQ SCH ×4 (06:28→21:19)
[2017-02-16 07:36] VITALS: BP 153/67; PULSE 72; RESP 18; TEMP 98.6; O2SAT 93
[2017-02-16] MEDS: lamoTRIgine 100 MG TAB PO SCH ×2 (08:25→21:16)
[2017-02-16] MEDS: metFORMIN HCL 500 MG TAB PO SCH ×2 (08:25→17:51)
[2017-02-16] MEDS: glipiZIDE 10 MG TAB PO SCH (08:25)
[2017-02-16] MEDS: SODIUM CHLORIDE 0.9% FLUSH 5 ML FLUSH IVF SCH ×2 (08:26→21:17)
[2017-02-16] MEDS: TIOTROPIUM BROMIDE 18 MCG INH INH SCH (09:00)
[2017-02-16 11:33] VITALS: BP 160/70; PULSE 70; RESP 18; TEMP 98.3; O2SAT 94
--- NOTE | 2017-02-16 11:51 | RADRPT ---
EXAM DATE/TIME: 02/16/2017 10:58 [place] COMPARISON: SPINE [facility]ERVICAL [facility] (AP&L[facility]), February 13, 2017, 14:15. INDICATIONS : Myelopathy. Post operative assesment of spinal cord, cervical discectomy on 02/13/2017. MEDICAL HISTORY : Carcinoma, prostate. SURGICAL HISTORY : Cervical discectomy. ENCOUNTER: Subsequent ACUITY: 3 day PAIN SCORE: 5/10 LOCATION: Neck. TECHNIQUE: Multiplanar, multisequence MRI examination of the cervical spine was performed. FINDINGS: Sagittal images demonstrate anetrolisthesis likely related to facet arthritis at C3-C4 of 3-4 mm. The re is multilevel disc space narrowing and marginal osteophyte formation maximal at C6-C7. There is an terior cervical fusion with a plate anteriorly from C6-C7. No focal areas of marrow replacement are i dentified. The craniocervical junction appears normal. The cord demonstrates significant flattening w ith increased signal intensity at C6-C7. Axial images were performed from C2-3 through C7-T1. C2-C3: No significant abnormalities identified. C3-C4: A central to right sided disc protrusion is present impinging on the thecal sac. This compromises the exiting right-sided nerve root exit zone. There is moderate neural foraminal narrowing on the right. C4-C5: There is broad-based annular bulge of disc. There is moderate spinal canal stenosis. There is moderat e neural foraminal narrowing bilaterally. C5-C6: There is broad-based annular bulge of disc. There is moderate to severe spinal canal stenosis. There is moderate neural foraminal narrowing bilaterally. C6-C7: There is moderate to severe spinal canal stenosis with increased signal intensity within the cord. Th ere is moderate neural foraminal narrowing bilaterally. C7-T1: There is mild annular bulge of the disc. There is mild facet arthritis bilaterally. The neural forami na are clear bilaterally. CONCLUSION: Postsurgical changes at C6-C7 with severe spinal canal stenosis and flattening of the cord with cord edema. There is also stenosis at C5-C6 Phill Luque MD on February 16, 2017 at 11:31 Board Certified Radiologist. This report was verified electronically.
--- NOTE | 2017-02-16 12:35 | HHI.NSPN ---
(Thang Davidson) Note Status Status: Progress Note (Thang Davidson) Interval History Interval History 02/13: The patient presented to the operating for an ACDF at the C6-7 level. Post -operatively he was admitted to a regular med/surg floor. 02/14: This morning the patient is awake & alert. He has some aching to the back of the neck. He does endorse some hoarseness but no difficulty swallowing. During the night he did have an episode that he describe like an electric shock that went from the neck down to the necks but has not had anything similar since. He does endorse intermittent numbness to the extremities. He stated Occupational Therapy felt the patient had some upper extremity weakness but he did not feel he did. 02/15: The patient is doing well when seen this afternoon. He states his neck feels stiff. He did have some dizziness earlier but relates it to not eating since he is diabetic. The dizziness resolved after he ate. He did endorse some difficulty swallowing once when he took a bite of hamburger, but none since. 02/16: Initially went to see patient this morning and he was in MRI. Nursing reported that the patient was weaker to the legs this morning and had difficulty ambulating. He reports pain across the upper back & shoulders when seen this afternoon. He also has some pain into the right leg that he describes as spasm-like. (Thang Davidson) Labs, Micro, & Vital Signs Results Allergies Coded Allergies Type Severity Reaction Last Updated Verified No Known Allergies 02/10/17 No 02/14//16/175/17/175//175/18// 06:00 18:00 06:00 18:00 06:00 18:00 Intake Total 460 ml 1200 ml 360 ml 1010 ml 480 ml 480 ml Output Total 565 ml 1690 ml 220 ml 1000 ml 425 ml 700 ml Balance -105 ml -490 ml 140 ml 10 ml 55 ml -220 ml Intake Oral 360 ml 1200 ml 360 ml 1010 ml 480 ml 480 ml IV Total 100 ml Output Urine Total 525 ml 1675 ml 200 ml 1000 ml 425 ml 700 ml Drainage Total 40 ml 15 ml 20 ml 0 ml 0 ml # Bowel Movements 0 0 0 0 0 0 Laboratory Tests Test 02/13/17 02/14/17 18:21 05:47 White Blood Count 11.8 TH/MM3 12.6 TH/MM3 Red Blood Count 4.17 MIL/MM3 4.09 MIL/MM3 Hemoglobin 12.5 GM/DL 12.3 GM/DL Hematocrit 37.2 % 36.8 % Mean Corpuscular Volume 89.3 FL 90.0 FL Mean Corpuscular Hemoglobin 30.0 PG 30.1 PG Mean Corpuscular Hemoglobin 33.6 % 33.5 % Concent Red Cell Distribution Width 12.8 % 12.7 % Platelet Count 260 TH/MM3 297 TH/MM3 Mean Platelet Volume 7.5 FL 7.7 FL Neutrophils (%) (Auto) 88.6 % 83.7 % Lymphocytes (%) (Auto) 6.5 % 9.3 % Monocytes (%) (Auto) 2.7 % 6.6 % Eosinophils (%) (Auto) 1.0 % 0.1 % Basophils (%) (Auto) 1.2 % 0.3 % Neutrophils # (Auto) 10.5 TH/MM3 10.6 TH/MM3 Lymphocytes # (Auto) 0.8 TH/MM3 1.2 TH/MM3 Monocytes # (Auto) 0.3 TH/MM3 0.8 TH/MM3 Eosinophils # (Auto) 0.1 TH/MM3 0.0 TH/MM3 Basophils # (Auto) 0.1 TH/MM3 0.0 TH/MM3 CBC Comment DIFF FINAL DIFF FINAL Differential Comment Sodium Level 133 MEQ/L 135 MEQ/L Potassium Level 5.1 MEQ/L 4.6 MEQ/L Chloride Level 101 MEQ/L 99 MEQ/L Carbon Dioxide Level 24.2 MEQ/L 28.3 MEQ/L Anion Gap 8 MEQ/L 8 MEQ/L Blood Urea Nitrogen 12 MG/DL 12 MG/DL Creatinine 0.90 MG/DL 0.85 MG/DL Estimat Glomerular Filtration 81 ML/MIN 87 ML/MIN Rate Random Glucose 249 MG/DL 240 MG/DL Calcium Level 8.5 MG/DL 8.9 MG/DL Constitutional Vital Signs Date Time Temp Pulse Resp B/P Pulse Ox O2 Delivery O2 Flow Rate FiO2 02/16/17 11:33 98.3 70 18 160/70 94 02/16/17 07:36 98.6 72 18 153/67 93 02/16/17 00:13 98.3 86 18 132/60 96 02/15/17 19:40 97.9 83 19 141/64 94 02/15/17 16:00 97.5 80 18 125/67 94 02/16/17 07:00 Intake Total 1610 ml Output Total 1725 ml Balance -115 ml (Thang Davidson) Review of Systems/Exam ROS Constitutional: Patient denies any fever or chills. HEENT: Patient denies any hoarseness or difficulty swallowing. Neck: Patient states he has some pain to the neck and across the upper back and shouders. Respiratory: Patient denies any shortness of breath or productive cough. Cardiovascular: Patient denies chest pain, palpitations or irregular heart beat. Gastrointestinal: Patient denies any abdominal pain, nausea, vomiting or bowel incontinence. Genitourinary: Patient reports he is voiding to the urinal but does have some difficulty getting started. He denies any urinary incontinence. Extremities: Patient states he has some pain to the neck and across the upper back and shoulders. He has some pain to the right leg and his legs are weaker today making it difficult to walk. Neurological: Patient denies any headache, dizziness, numbness or tingling. Exam General: Awake, readily interacts, normal affect, smiles readily, NAD. Neck: [place] J cervical collar in place. Midline neck NTTP, no JVD, trachea midline, intact post-surgical dressing to left anterior neck NTTP. Respiratory: CTAB w/o W/R/R, equal excursion, non-laboured, on RA. Cardiovascular: S1S2 w/RRR w/o M/G/R, radial & pedal pulses 2+ bilaterally, cap refill < 2 sec, no pedal edema. Gastrointestinal: Abdomen soft, nontender, positive bowel sounds. Musculoskeletal: REDMAN, TTP across the upper back/posterior shoulders bilaterally , no evident deformity, discolouration or clubbing. Neurological: AAOx3 Speech clear & appropriate Follows simple commands Sensation to light touch grossly intact to all extremities. Motor strength: bilateral biceps 5/5, right deltoid & tricep 5/5, left deltoid & tricep 4/5, LLE 5/5 and RLE 4 to 4+/5 (Thang Davidson) Medications Current Medications Current Medications Medications (Trade) Dose Ordered Sig/Lyudmila Route Start Time Stop Time Status Last Admin (Lr 1000 ml Inj) 1,000 ml @ 0 mls/hr Q0M IV 02/13/17 10:45 (NS Flush) 2 ml UNSCH PRN IVF 02/13/17 17:45 IV Flush 2 ml 2 ml BID IVF 02/13/17 21:00 02/16/17 08:26 (1/2 NS + KCl 20 Meq Inj) 1,000 ml @ 100 mls/hr Q10H IV 02/13/17 17:39 02/13/17 17:39 (Glucotrol) 10 mg DAILY PO 02/14/17 09:00 02/16/17 08:25 (LaMICtal) 100 mg BID PO 02/13/17 21:00 02/16/17 08:25 (Synthroid) 100 mcg DAILY@06 PO 02/14/17 06:00 02/16/17 06:22 (Glucophage) 1,000 mg BIDPC PO 02/14/17 09:00 02/16/17 08:25 (Spiriva Inh) 18 mcg DAILY INH 02/14/17 09:00 02/14/17 09:00 (Ambien) 5 mg HS PRN PO 02/13/17 18:15 02/15/17 21:46 Patient Own Medication PT OWN MED: Acetaminophen Pm Extra ... HS PO 02/13/17 21:00 Hold (Inderal La) 60 mg Q12HR PO 02/13/17 21:00 02/16/17 01:08 ([place] 5-325 Mg) 1 tab Q4H PRN PO 02/13/17 18:30 02/14/17 18:55 ([place] 10-325 Mg) 1 tab Q4H PRN PO 02/13/17 18:30 02/16/17 06:23 (Dilaudid Pf Inj) 0.5 mg Q3H PRN IV 02/13/17 18:30 (Morphine Inj) 4 mg Q3H PRN IV 02/13/17 18:30 (Narcan Inj) 0.4 mg UNSCH PRN IV 02/13/17 18:30 (D50w (Vial) Inj) 25 ml UNSCH PRN IV PUSH 02/13/17 18:30 (Glucagon Inj) 1 mg UNSCH PRN OTHER 02/13/17 18:30 (Thang Davidson) Medical Decision Making MDM Remarks (1) Cervical disc disease with myelopathy 1. Cervical spondylosis and degenerative disc disease 2. Cervical myelopathy 3. Cervical stenosis POD # 1 s/p (): 1. C6-7 anterior cervical discectomy, resection posterior osteophyte disc complex for spinal cord decompression, bilateral foraminotomy-microtechnique 2. C6-7 anterior cervical interbody fusion, composite allograft bone 3. C6-7 anterior cervical instrumentation Mild upper thoracic spine stenosis per MRI thoracic spine Patient with stable neurological exam BUE & LLE, slightly weaker to RLE MRI cervical spine this morning demonstrates post-surgical changes at C6-C7 with severe spinal stenosis and flattening of the cord with cord edema (Thang Davidson) Plan Plan Remarks Speech Therapy for swallowing PT & OT Plan was to discharge patient to [facility] for inpatient rehab today but will hold discharge at this time due to the MRI results (Thang Davidson) Attending Statement I have personally seen and examined the patient on the date of this note. Pertinent documentation and study results have been reviewed by the undersigned. I have personally developed the treatment plan and performed medical decision making. The patient's MRI today was reviewed by the undersigned and discussed with radiology. The study is difficult to interpret due to apparent motion artifact. There may be some hematoma formation at the operative site. Overall however there is persistent canal stenosis related to the residual multilevel degenerative disc disease and spondylosis. There is some apparent increased signal intensity in the cord at the operative site, as anticipated, given the severity of the patient's preoperative spinal cord compression. I discussed with him the option of proceeding with posterior staged decompressive procedure to more fully decompress the cord. On his examination today, his lower extremity strength seems to be somewhat worse over the past couple of days compared to his preoperative exam, now mostly 3-4/5 lower extremity strength. He and his family appear to understand the above. They wish to proceed with C4- C7 laminoplasty with allograft bone and titanium plates and screws. The procedure, risks, possible complications were fully discussed with them and all questions answered. (Martin Alvarez MD) Thang Davidson February 16, 2017 12:35 Martin Alvarez MD February 16, 2017 21:03
[2017-02-16 15:51] VITALS: BP 131/61; PULSE 74; RESP 18; TEMP 99.2; O2SAT 95
[2017-02-16 20:17] VITALS: BP 142/63; PULSE 73; RESP 17; TEMP 98.5; O2SAT 93
[2017-02-16] MEDS: COLCHICINE 0.6 MG TAB PO SCH (22:10)
[2017-02-16] MEDS: ZOLPIDEM TARTRATE 5 MG TAB PO PRN (22:10)
[2017-02-17] VITALS: BP 130/62; PULSE 77; RESP 16; TEMP 98; O2SAT 96
[2017-02-17 04:00] VITALS: BP 132/65; PULSE 79; RESP 16; TEMP 97.7; O2SAT 96
[2017-02-17] MEDS ORDERED: METOPROLOL TARTRATE 25 MG TAB PO PRN (04:15)
[2017-02-17] MEDS ORDERED: LACTATED RINGER'S 1000 ML IV PRN (04:15)
[2017-02-17] MEDS ORDERED: POVIDONE IODINE 5% (ANTISEPSIS KIT) 4 APPLICATIONS EACH NARE PRN (04:15)
[2017-02-17] MEDS ORDERED: CHLORHEXIDINE GLUCONATE 2 % 1 PACK (2 CLOTHS) TOPICAL PRN (04:15)
[2017-02-17] MEDS ORDERED: SODIUM CHLORID 0.9% 500 ML IV PRN (04:15)
[2017-02-17] MEDS: ACETAMINOPHEN/HYDROcodone 325 MG/10 MG TAB PO PRN ×2 (06:11→23:14)
[2017-02-17] MEDS: LEVOTHYROXINE SODIUM 100 MCG TAB PO SCH (06:11)
[2017-02-17] MEDS: INSULIN NovoLIN REGULAR SUPPLEMENTAL SCALE SQ SCH ×4 (06:18→22:42)
[2017-02-17 07:22] LABS: AUTOMATED NEUTROPHIL # 8.6 TH/MM3 (1.8-7.7); BASOPHIL # 0.1 TH/MM3 (0-0.2); BASOPHIL % 0.7 % (0.0-2.0); EOSINOPHIL # 0.3 TH/MM3 (0-0.4); EOSINOPHIL % 2.5 % (0.0-4.0); HEMATOCRIT 33.6 % (39.0-51.0); HEMO FLAGS DIFF FINAL; LYMPH % 13.1 % (9.0-44.0); LYMPHOCYTE # 1.5 TH/MM3 (1.0-4.8); MEAN CELL VOLUME 88.9 FL (80.0-100.0); MEAN CORPUSCULAR HEMOGLOBIN 29.3 PG (27.0-34.0); MONO % 11.3 % (0.0-8.0); NEUT % 72.4 % (16.0-70.0); PLATELET COUNT 240 TH/MM3 (150-450); RED BLOOD COUNT 3.78 MIL/MM3 (4.50-5.90); RED CELL DISTRIBUTION WIDTH 12.8 % (11.6-17.2); WHITE BLOOD COUNT 11.8 TH/MM3 (4.0-11.0)
[2017-02-17 07:35] VITALS: BP 153/67; PULSE 71; RESP 18; TEMP 99.1; O2SAT 92
[2017-02-17 07:40] LABS: BICARBONATE 27.6 MEQ/L (21.0-32.0); POTASSIUM 4.2 MEQ/L (3.5-5.1)
[2017-02-17] MEDS: PROPRANOLOL HCL LA 60 MG CAP PO SCH ×2 (08:53→23:12)
[2017-02-17] MEDS: SODIUM CHLORIDE 0.9% FLUSH 5 ML FLUSH IVF SCH ×2 (08:55→21:00)
[2017-02-17] MEDS: glipiZIDE 10 MG TAB PO SCH (08:56)
[2017-02-17] MEDS: lamoTRIgine 100 MG TAB PO SCH ×2 (08:56→23:11)
[2017-02-17] MEDS: TIOTROPIUM BROMIDE 18 MCG INH INH SCH (08:56)
[2017-02-17] MEDS: metFORMIN HCL 500 MG TAB PO SCH ×2 (08:56→18:00)
[2017-02-17] MEDS: COLCHICINE 0.6 MG TAB PO SCH ×2 (08:56→23:11)
--- NOTE | 2017-02-17 11:33 | HHI.NSPN ---
(Thang Davidson) Note Status Status: Progress Note (Thang Davidson) Interval History Interval History 02/13: The patient presented to the operating for an ACDF at the C6-7 level. Post -operatively he was admitted to a regular med/surg floor. 02/14: This morning the patient is awake & alert. He has some aching to the back of the neck. He does endorse some hoarseness but no difficulty swallowing. During the night he did have an episode that he describe like an electric shock that went from the neck down to the necks but has not had anything similar since. He does endorse intermittent numbness to the extremities. He stated Occupational Therapy felt the patient had some upper extremity weakness but he did not feel he did. 02/15: The patient is doing well when seen this afternoon. He states his neck feels stiff. He did have some dizziness earlier but relates it to not eating since he is diabetic. The dizziness resolved after he ate. He did endorse some difficulty swallowing once when he took a bite of hamburger, but none since. 02/16: Initially went to see patient this morning and he was in MRI. Nursing reported that the patient was weaker to the legs this morning and had difficulty ambulating. He reports pain across the upper back & shoulders when seen this afternoon. He also has some pain into the right leg that he describes as spasm-like. 02/17: Patient awake & alert this morning. States he is not doing to good. He states he has had some pain to the neck which the niece says are spasms. He also reports having intermittent pain that goes to the upper back/shoulder and into the arms that is scattered but radiating. A MRI of the cervical spine yesterday demonstrated persistent canal stenosis and increased cord signal intensity. His clinical exam was also worse. Therefore his transfer to [facility] was cancelled and he was placed on the OR schedule for a C4-C7 laminoplasty today. (Thang Davidson) Labs, Micro, & Vital Signs Results Allergies Coded Allergies Type Severity Reaction Last Updated Verified No Known Allergies 02/10/17 No Recent Impressions Cervical Spine MRI 02/16/17 0000 Signed Impressions: Service Date/Time: January 10:58 - CONCLUSION: Postsurgical changes at C6-C7 with severe spinal canal stenosis and flattening of the cord with cord edema. There is also stenosis at C5-C6 Phill Luque MD / 06:00 18:00 06:00 18:00 06:00 18:00 Intake Total 360 ml 1010 ml 480 ml 980 ml 480 ml Output Total 220 ml 1000 ml 425 ml 1400 ml 900 ml Balance 140 ml 10 ml 55 ml -420 ml -420 ml Intake Oral 360 ml 1010 ml 480 ml 980 ml 480 ml Output Urine Total 200 ml 1000 ml 425 ml 1400 ml 900 ml Drainage Total 20 ml 0 ml 0 ml # Bowel Movements 0 0 0 0 Laboratory Tests Test 02/17/17 06:37 White Blood Count 11.8 TH/MM3 Red Blood Count 3.78 MIL/MM3 Hemoglobin 11.1 GM/DL Hematocrit 33.6 % Mean Corpuscular Volume 88.9 FL Mean Corpuscular Hemoglobin 29.3 PG Mean Corpuscular Hemoglobin 33.0 % Concent Red Cell Distribution Width 12.8 % Platelet Count 240 TH/MM3 Mean Platelet Volume 8.0 FL Neutrophils (%) (Auto) 72.4 % Lymphocytes (%) (Auto) 13.1 % Monocytes (%) (Auto) 11.3 % Eosinophils (%) (Auto) 2.5 % Basophils (%) (Auto) 0.7 % Neutrophils # (Auto) 8.6 TH/MM3 Lymphocytes # (Auto) 1.5 TH/MM3 Monocytes # (Auto) 1.3 TH/MM3 Eosinophils # (Auto) 0.3 TH/MM3 Basophils # (Auto) 0.1 TH/MM3 CBC Comment DIFF FINAL Differential Comment Sodium Level 135 MEQ/L Potassium Level 4.2 MEQ/L Chloride Level 100 MEQ/L Carbon Dioxide Level 27.6 MEQ/L Anion Gap 7 MEQ/L Blood Urea Nitrogen 17 MG/DL Creatinine 0.73 MG/DL Estimat Glomerular Filtration 104 ML/MIN Rate Random Glucose 166 MG/DL Calcium Level 8.9 MG/DL Constitutional Vital Signs Date Time Temp Pulse Resp B/P Pulse Ox O2 Delivery O2 Flow Rate FiO2 02/17/17 07:35 99.1 71 18 153/67 92 02/17/17 04:00 97.7 79 16 132/65 96 02/17/17 00:00 98.0 77 16 130/62 96 02/16/17 20:17 98.5 73 17 142/63 93 02/16/17 15:51 99.2 74 18 131/61 95 02/16/17 11:33 98.3 70 18 160/70 94 02/17/17 07:00 Intake Total 980 ml Output Total 1600 ml Balance -620 ml (Thang Davidson) Review of Systems/Exam ROS Constitutional: Patient denies any fever or chills. HEENT: Patient states he has some hoarseness but no difficulty swallowing. Neck: Patient states he has some pain to the neck as well as the upper back, shoulders and arms that comes and goes. Respiratory: Patient denies any shortness of breath or productive cough. Cardiovascular: Patient denies chest pain, palpitations or irregular heart beat. Gastrointestinal: Patient denies any abdominal pain, nausea, vomiting or bowel incontinence. Genitourinary: Patient denies any urinary incontinence. Extremities: Patient states he has some pain to the neck as well as the upper back, shoulders and arms that comes and goes. He has weakness to the legs. Neurological: Patient denies any headache, dizziness, numbness or tingling. Exam General: Awake, readily interacts, normal affect, smiles readily, NAD. Neck: [place] J cervical collar in place. Midline neck NTTP, no JVD, trachea midline, intact post-surgical dressing to left anterior neck minimally TTP, surgical incision well-approximated with steri-strips, no evident drainage, erythema or streaking. Respiratory: CTAB w/o W/R/R, equal excursion, non-laboured, on RA. Cardiovascular: S1S2 w/RRR w/o M/G/R, radial & pedal pulses 2+ bilaterally, cap refill < 2 sec, no pedal edema. Gastrointestinal: Abdomen soft, nontender, bowel sounds not appreciated. Musculoskeletal: REDMAN, NTTP across the upper back/posterior shoulders or arms bilaterally, no evident deformity, discolouration or clubbing. Neurological: AAOx3 Speech clear & appropriate Follows simple commands Sensation to light touch grossly intact to all extremities. Motor strength: bilateral biceps 5/5, right deltoid & tricep 5/5, left deltoid & tricep 4/5, LLE 4 to 4+/5 and RLE 3+ to 4/5. (Thang Davidson) Medications Current Medications Current Medications Medications (Trade) Dose Ordered Sig/Lyudmila Route Start Time Stop Time Status Last Admin (Lr 1000 ml Inj) 1,000 ml @ 0 mls/hr Q0M IV 02/13/17 10:45 (NS Flush) 2 ml UNSCH PRN IVF 02/13/17 17:45 IV Flush 2 ml 2 ml BID IVF 02/13/17 21:00 02/17/17 08:55 (1/2 NS + KCl 20 Meq Inj) 1,000 ml @ 100 mls/hr Q10H IV 02/13/17 17:39 02/13/17 17:39 (Glucotrol) 10 mg DAILY PO 02/14/17 09:00 02/16/17 08:25 (LaMICtal) 100 mg BID PO 02/13/17 21:00 02/16/17 21:16 (Synthroid) 100 mcg DAILY@06 PO 02/14/17 06:00 02/17/17 06:11 (Glucophage) 1,000 mg BIDPC PO 02/14/17 09:00 02/16/17 17:51 (Spiriva Inh) 18 mcg DAILY INH 02/14/17 09:00 02/14/17 09:00 (Ambien) 5 mg HS PRN PO 02/13/17 18:15 02/16/17 22:10 Patient Own Medication PT OWN MED: Acetaminophen Pm Extra ... HS PO 02/13/17 21:00 Hold (Inderal La) 60 mg Q12HR PO 02/13/17 21:00 02/17/17 08:53 ([place] 5-325 Mg) 1 tab Q4H PRN PO 02/13/17 18:30 02/14/17 18:55 ([place] 10-325 Mg) 1 tab Q4H PRN PO 02/13/17 18:30 02/17/17 06:11 (Dilaudid Pf Inj) 0.5 mg Q3H PRN IV 02/13/17 18:30 (Morphine Inj) 4 mg Q3H PRN IV 02/13/17 18:30 (Narcan Inj) 0.4 mg UNSCH PRN IV 02/13/17 18:30 (D50w (Vial) Inj) 25 ml UNSCH PRN IV PUSH 02/13/17 18:30 (Glucagon Inj) 1 mg UNSCH PRN OTHER 02/13/17 18:30 Colchicine 0.6 mg 0.6 mg BID PO 02/16/17 21:15 02/16/17 22:10 Lactated Ringer's 1,000 ml @ 30 mls/hr Q24H PRN IV 02/17/17 04:15 02/20/17 04:14 (NS 500 ml Inj) 500 ml @ 30 mls/hr [id number] PRN IV 02/17/17 04:15 02/20/17 04:14 (Thang Davidson) Medical Decision Making MDM Remarks (1) Cervical disc disease with myelopathy 1. Cervical spondylosis and degenerative disc disease 2. Cervical myelopathy 3. Cervical stenosis POD # 4 s/p (): 1. C6-7 anterior cervical discectomy, resection posterior osteophyte disc complex for spinal cord decompression, bilateral foraminotomy-microtechnique 2. C6-7 anterior cervical interbody fusion, composite allograft bone 3. C6-7 anterior cervical instrumentation Mild upper thoracic spine stenosis per MRI thoracic spine Patient with stable neurological exam BUE & LLE, slightly weaker to RLE MRI cervical spine this morning demonstrates post-surgical changes at C6-C7 with severe spinal stenosis and flattening of the cord with cord edema (Tahng Davidson) Plan Plan Remarks Speech Therapy for swallowing PT & OT NPO at present To OR today for a C4-C7 laminoplasty (Thang Davidson) Attending Statement I have personally seen and examined the patient on the date of this note. Pertinent documentation and study results have been reviewed by the undersigned. I have personally developed the treatment plan and performed medical decision making. Agree with findings, exam, and treatment plan as noted above. Patient for C4-7 laminoplasty today (Martin Alvarez MD) Thang Davidson February 17, 2017 11:33 Martin Alvarez MD February 18, 2017 20:35
[2017-02-17 11:34] VITALS: BP 156/67; PULSE 66; RESP 18; TEMP 98.1; O2SAT 95
[2017-02-17] MEDS: 1/2 NS + KCL 20 MEQ INJ 1,000 ML IV SCH ×2 (11:39→22:00)
[2017-02-17] MEDS ORDERED: ONDANSETRON HCL 4 MG/2 ML VIAL IV PUSH ONE (12:00)
[2017-02-17] MEDS ORDERED: ePHEDrine/NS 25 MG/5 ML SYR IV ONE ×2 (12:00)
[2017-02-17] MEDS ORDERED: SODIUM CHLORID 0.9% 500 ML INJ 500 ML IV ONE (12:00)
[2017-02-17] MEDS ORDERED: PHENYLEPH/NS 1000 MCG/10 ML SYR IV ONE (12:00)
[2017-02-17] MEDS ORDERED: PROPOFOL 200 MG/20 ML AMP IV ONE ×2 (12:00)
[2017-02-17] MEDS ORDERED: NORMOSOL R INJ 1,000 ML IV ONE (12:00)
[2017-02-17] MEDS ORDERED: NORMOSOL R INJ 3,000 ML IV ONE (12:00)
[2017-02-17] MEDS ORDERED: LACTATED RINGER'S 1000 ML INJ 2,000 ML IV ONE (12:00)
[2017-02-17] MEDS ORDERED: THROMBIN (TOPICAL) 5,000 UNIT VIAL ONE (14:59)
[2017-02-17] MEDS ORDERED: GELFOAM SIZE 100 ONE ×2 (15:00→18:37)
[2017-02-17] MEDS ORDERED: LIDOCAINE 1%/EPINEPHrine 1:100,000 SOLN 50 ML VIAL ONE (15:00)
[2017-02-17] MEDS ORDERED: GENTAMICIN SULFATE 80 MG/2 ML VIAL ONE (15:00)
[2017-02-17] MEDS ORDERED: MIDAZOLAM HCL 2 MG/2 ML VIAL IV ONE (15:11)
[2017-02-17] MEDS ORDERED: ACETAMINOPHEN 1000 MG/100 ML VIAL IV ONE (15:20)
[2017-02-17] MEDS ORDERED: fentaNYL CITRATE 250 MCG/5 ML AMP ONE (15:20)
[2017-02-17] MEDS ORDERED: ceFAZolin 2 GM PREMIX 50 ML ONE (16:14)
[2017-02-17] MEDS ORDERED: ceFAZolin INJ 1,000 MG VIAL IV ONE (20:20)
[2017-02-17] MEDS ORDERED: DO NOT ADM ANY ANTICOAGULANT DRUGS PRN (21:19)
[2017-02-17] MEDS ORDERED: MORPHINE SULFATE 4 MG/ML INJ ONE (21:36)
[2017-02-17] MEDS: D5-NS + KCL 20 MEQ INJ 1,000 ML IV SCH (22:00)
[2017-02-17] MEDS ORDERED: SODIUM CHLORIDE 0.9% FLUSH 5 ML FLUSH IVF PRN (22:30)
--- NOTE | 2017-02-17 22:47 | PD.OP ---
Operative Report Date of Surgery: February 17, 2017 Preoperative Diagnosis: (1) Cervical disc disease with myelopathy Cervical myelopathy Severe cervical spondylosis and degenerative disc disease with canal stenosis Persistent lower extremity weakness status post initial anterior cervical decompression procedure Postoperative Diagnosis: (1) Cervical disc disease with myelopathy Cervical myelopathy Severe cervical spondylosis and degenerative disc disease with canal stenosis Persistent lower extremity weakness status post initial anterior cervical decompression procedure Procedure: C4 - C7 Laminoplasty Allograft bone . DBM Titanium plated and screws Anesthesia: General Surgeon: Martin Alvarez Road Tester(s): Rafael Angeles Operation and Findings: Indications: 81-year-old male with severe cervical stenosis, progressive gait difficulty. Underwent initial C6-7 ACDF for resection of large posterior osteophyte disc complex with significant anterior cord compression 02/13/17. Postoperatively, patient with possible increase lower extremity weakness. Postoperative MRI with persistent significant stenosis although suboptimal study. Patient has elected to proceed with further posterior decompression procedure to more fully decompress the spinal canal. Findings: Severe multilevel posterior osteophytic disc complexes depending on the ventral thecal sac with some distraction of the adjacent nerve roots. Procedure in detail: The patient was brought into the operating room and general endotracheal anesthesia induced without difficulty. Lines were established by anesthesia Knee high sequential compression devices were placed Appropriate timeout procedure was performed with all personnel present and in agreement The Barnes 3 point fixation device was placed. The patient was in a cervical collar for positioning Leads for intraoperative neuro monitoring were placed in a baseline study obtained The patient was turned into prone position on the 3080 table on the Christian frame with the undersigned maintaining control of the head and neck. The head and neck were secured to the operating room table with the Barnes adapter with the neck slightly flexed with 3-4 fingerbreadths between the chin and chest. The neck position was checked with intraoperative C-arm and felt to be satisfactory. The cervical collar was removed. All extremities were appropriately padded. The back of the head and neck were shaved with clippers and sterilely prepped and draped. 1% Xylocaine with epinephrine was used for local infiltration over the incision site was made in the midline posterior neck and carried sharply down to the spinous processes of . The microscope was used as needed during the decompression and graft and plate placement portion of the procedure.. On the right side, the muscle attachments were mostly left in place to the spinous process and the midline supraspinous ligament was left intact. Monge elevator was used to expose the junction of the lamina and facet at the C4 -C7 levels. On the right side, the TPS drill with the M8 debbie was used to incise a trough in the dorsal cortical bone at the C4-C7 levels. On the left side the posterior muscle attachments and fascia were incised with the Bovie and elevated away from the lamina and facet and spinous processes at the C3-T1 levels On the left side. The TPS drill with the M8 debbie was used to drill a thin trough through both the dorsal and ventral cortical bone at the junction of the lamina and facet. A thin remaining shell of bone at the ventral lamina was removed with the 1 and 2 mm Kerrison rongeur. The lamina decaler was then used to elevate the left lamina away from the facet , creating a partial fracture through the lamina on the right side. Prior to placement of the laminoplasty graft and plate, the inferior ventral C3 and superior ventral T1 lamina were removed with the TPS drill and the Kerrison rongeur to further decompress the dura at these levels. The prepared iliac autografts were then placed between the elevated laminar edge and decorticated facet at the left C4-C7 levels, with the Synthes titanium laminoplasty plates pre- attached to the graft with 6 mm screws. The 4 through 6 mm screws were then used as needed to secure the laminoplasty plates to the edge of the lamina and through the facet and lateral mass at the left C4-C7 levels. The entire construct was checked with intraoperative C-arm and also visualized under the microscope. The thin ligament dissector and blunt hook were used to carefully probe beneath the elevated lamina to ensure adequate decompression of the thecal sac. Care was taken to make sure that the edge of the lamina on the right side was not depressed into the spinal canal. The region was well irrigated with antibiotic irrigation. Bleeding was carefully controlled with bipolar forceps A 7 mm flat fluted drain was left at the operative site and brought out through an incision in the upper thoracic region and secured to the skin with nylon suture The closure was performed with 0 Vicryl interrupted for the deep and superficial fascia with 3-0 Vicryl interrupted subcutaneous closure and 4-0 Vicryl subcutaneous closure. A dressing of sterile Mastisol and Steri-Strips and a Primapore dressing was placed. The patient was placed back in a cervical collar and released from the [place] adapter and turned back into supine position on the recovery room bed. The [place] 3 point fixation device was then removed. The patient was taken to recovery room in stable condition All counts were correct at the end of the case. Estimated blood loss was 500 cc No specimen was sent to pathology Neural monitoring remained stable during the procedure Martin Alvarez MD February 17, 2017 22:47
[2017-02-17 23:00] VITALS: BP 133/61; PULSE 64; RESP 16; TEMP 97; O2SAT 95
[2017-02-18 04:00] VITALS: BP 146/65; PULSE 65; RESP 17; TEMP 97.6; O2SAT 95
[2017-02-18] MEDS: LEVOTHYROXINE SODIUM 100 MCG TAB PO SCH (04:15)
[2017-02-18 05:30] LABS: BASOPHIL % 0.4 % (0.0-2.0); HEMATOCRIT 30.6 % (39.0-51.0); HEMO FLAGS DIFF FINAL; LYMPH % 4.5 % (9.0-44.0); LYMPHOCYTE # 0.6 TH/MM3 (1.0-4.8); MEAN CELL VOLUME 88.6 FL (80.0-100.0); MEAN CORPUSCULAR HEMOGLOBIN 30.2 PG (27.0-34.0); MEAN CORPUSCULAR HGB CONC 34.1 % (32.0-36.0); MONO % 5.1 % (0.0-8.0); PLATELET COUNT 283 TH/MM3 (150-450); RED BLOOD COUNT 3.45 MIL/MM3 (4.50-5.90); RED CELL DISTRIBUTION WIDTH 12.9 % (11.6-17.2); WHITE BLOOD COUNT 12.2 TH/MM3 (4.0-11.0)
[2017-02-18 05:38] LABS: BICARBONATE 24.8 MEQ/L (21.0-32.0); POTASSIUM 4.9 MEQ/L (3.5-5.1)
[2017-02-18] MEDS: INSULIN NovoLIN REGULAR SUPPLEMENTAL SCALE SQ SCH ×4 (06:39→21:37)
[2017-02-18] MEDS: metFORMIN HCL 500 MG TAB PO SCH ×2 (07:53→17:59)
[2017-02-18] MEDS: COLCHICINE 0.6 MG TAB PO SCH ×2 (07:53→21:27)
[2017-02-18] MEDS: lamoTRIgine 100 MG TAB PO SCH ×2 (07:53→21:27)
[2017-02-18] MEDS: glipiZIDE 10 MG TAB PO SCH (07:53)
[2017-02-18] MEDS: FERROUS SULFATE 325 MG (65 MG ELEMENTAL IRON) TAB PO SCH (07:53)
[2017-02-18] MEDS: ACETAMINOPHEN/HYDROcodone 325 MG/10 MG TAB PO PRN ×4 (07:54→23:08)
[2017-02-18] MEDS: PROPRANOLOL HCL LA 60 MG CAP PO SCH ×2 (07:54→21:28)
[2017-02-18] MEDS: TIOTROPIUM BROMIDE 18 MCG INH INH SCH (07:55)
[2017-02-18] MEDS: SODIUM CHLORIDE 0.9% FLUSH 5 ML FLUSH IVF SCH ×2 (07:55→21:00)
[2017-02-18] MEDS: D5-NS + KCL 20 MEQ INJ 1,000 ML IV SCH ×2 (07:56→18:24)
[2017-02-18 08:00] VITALS: BP 162/72; PULSE 62; RESP 19; TEMP 98.3; O2SAT 97
[2017-02-18 08:23] VITALS: O2SAT 95
[2017-02-18] MEDS ORDERED: SODIUM CHLORIDE 0.9% FLUSH 5 ML FLUSH IVF SCH (09:00)
[2017-02-18 12:00] VITALS: BP 139/65; PULSE 66; RESP 18; TEMP 97.2; O2SAT 97
--- NOTE | 2017-02-18 15:01 | HHI.NSPN ---
(Maximo Davidsonconchita SHAFER) Note Status Status: Progress Note (Thang DavidsonScott ROCKP) Interval History Interval History 02/13: The patient presented to the operating for an ACDF at the C6-7 level. Post -operatively he was admitted to a regular med/surg floor. 02/14: This morning the patient is awake & alert. He has some aching to the back of the neck. He does endorse some hoarseness but no difficulty swallowing. During the night he did have an episode that he describe like an electric shock that went from the neck down to the necks but has not had anything similar since. He does endorse intermittent numbness to the extremities. He stated Occupational Therapy felt the patient had some upper extremity weakness but he did not feel he did. 02/15: The patient is doing well when seen this afternoon. He states his neck feels stiff. He did have some dizziness earlier but relates it to not eating since he is diabetic. The dizziness resolved after he ate. He did endorse some difficulty swallowing once when he took a bite of hamburger, but none since. 02/16: Initially went to see patient this morning and he was in MRI. Nursing reported that the patient was weaker to the legs this morning and had difficulty ambulating. He reports pain across the upper back & shoulders when seen this afternoon. He also has some pain into the right leg that he describes as spasm-like. 02/17: Patient awake & alert this morning. States he is not doing to good. He states he has had some pain to the neck which the niece says are spasms. He also reports having intermittent pain that goes to the upper back/shoulder and into the arms that is scattered but radiating. A MRI of the cervical spine yesterday demonstrated persistent canal stenosis and increased cord signal intensity. His clinical exam was also worse. Therefore his transfer to [facility] was cancelled and he was placed on the OR schedule for a C4-C7 laminoplasty today. 02/18: The patient went for a C4-C7 laminoplasty yesterday due to persistent canal stenosis and worsening clinical exam. This afternoon when seen the patient is doing good. He and his family reported that he had difficulty with coordination to the left hand this morning. It still persists but is better. ( Thang Davidson) Labs, Micro, & Vital Signs Results Allergies Coded Allergies Type Severity Reaction Last Updated Verified No Known Allergies 02/10/17 No Recent Impressions Cervical Spine MRI 02/16/17 0000 Signed Impressions: Service Date/Time: January 10:58 - CONCLUSION: Postsurgical changes at C6-C7 with severe spinal canal stenosis and flattening of the cord with cord edema. There is also stenosis at C5-C6 Phill Luque MD //// 06:00 18:00 06:00 18:00 06:00 18:00 Intake Total 480 ml 980 ml 480 ml 0 ml 4950 ml 827 ml Output Total 425 ml 1400 ml 900 ml 450 ml 1225 ml 1410 ml Balance 55 ml -420 ml -420 ml -450 ml 3725 ml -583 ml Intake Oral 480 ml 980 ml 480 ml 0 ml 50 ml IV Total 827 ml Other 4900 ml Output Urine Total 425 ml 1400 ml 900 ml 450 ml 700 ml 1350 ml Drainage Total 0 ml 0 ml 25 ml 60 ml Estimated Blood Loss 500 ml # Bowel Movements 0 0 0 Laboratory Tests Test 02/17/17 02/18/17 06:37 03:27 White Blood Count 11.8 TH/MM3 12.2 TH/MM3 Red Blood Count 3.78 MIL/MM3 3.45 MIL/MM3 Hemoglobin 11.1 GM/DL 10.4 GM/DL Hematocrit 33.6 % 30.6 % Mean Corpuscular Volume 88.9 FL 88.6 FL Mean Corpuscular Hemoglobin 29.3 PG 30.2 PG Mean Corpuscular Hemoglobin 33.0 % 34.1 % Concent Red Cell Distribution Width 12.8 % 12.9 % Platelet Count 240 TH/MM3 283 TH/MM3 Mean Platelet Volume 8.0 FL 8.1 FL Neutrophils (%) (Auto) 72.4 % 90.0 % Lymphocytes (%) (Auto) 13.1 % 4.5 % Monocytes (%) (Auto) 11.3 % 5.1 % Eosinophils (%) (Auto) 2.5 % 0.0 % Basophils (%) (Auto) 0.7 % 0.4 % Neutrophils # (Auto) 8.6 TH/MM3 11.0 TH/MM3 Lymphocytes # (Auto) 1.5 TH/MM3 0.6 TH/MM3 Monocytes # (Auto) 1.3 TH/MM3 0.6 TH/MM3 Eosinophils # (Auto) 0.3 TH/MM3 0.0 TH/MM3 Basophils # (Auto) 0.1 TH/MM3 0.0 TH/MM3 CBC Comment DIFF FINAL DIFF FINAL Differential Comment Sodium Level 135 MEQ/L 135 MEQ/L Potassium Level 4.2 MEQ/L 4.9 MEQ/L Chloride Level 100 MEQ/L 98 MEQ/L Carbon Dioxide Level 27.6 MEQ/L 24.8 MEQ/L Anion Gap 7 MEQ/L 12 MEQ/L Blood Urea Nitrogen 17 MG/DL 15 MG/DL Creatinine 0.73 MG/DL 0.70 MG/DL Estimat Glomerular Filtration 104 ML/MIN 109 ML/MIN Rate Random Glucose 166 MG/DL 228 MG/DL Calcium Level 8.9 MG/DL 8.4 MG/DL Constitutional Vital Signs Date Time Temp Pulse Resp B/P Pulse Ox O2 Delivery O2 Flow Rate FiO2 02/18/17 08:54 18 02/18/17 08:23 95 21 02/18/17 04:00 97.6 65 17 146/65 95 02/17/17 23:20 Nasal Cannula 2.00 02/17/17 23:00 97.0 64 16 133/61 95 02/17/17 22:30 98.3 63 18 144/65 96 Nasal Cannula 2 02/17/17 22:15 65 19 145/66 97 Nasal Cannula 2 02/17/17 22:00 64 19 132/62 97 Nasal Cannula 2 02/17/17 21:45 69 17 168/81 96 Nasal Cannula 3 02/17/17 21:30 68 20 143/67 97 Nasal Cannula 3 02/17/17 21:24 98.3 72 19 146/65 98 Nasal Cannula 3 02/18/17 07:00 Intake Total 5777 ml Output Total 3085 ml Balance 2692 ml (Thang Davidson) Review of Systems/Exam ROS Neck: Patient states his neck pain is a 5 or 6 out of 10. He denies any spasms to the neck/upper back. Extremities: Patient states he clumsiness to the left arm/hand. He states the weakness to the legs is better. Neurological: Patient has numbness to the left arm and right leg. He denies any headache or dizziness. Exam Neck: Kinmundy J cervical collar in place. No JVD, trachea midline, intact post- surgical dressing to left anterior neck. Musculoskeletal: REDMAN, NTTP, unable to perform fine motor movements with LUE, no evident deformity, discolouration or clubbing. Neurological: AAOx3 Speech clear & appropriate Follows simple commands Numbness to the left hand especially the 4th & 5th digits and to the RLE. Motor strength improved to the lower extremities. (Thang Davidson) Medications Current Medications Current Medications Medications (Trade) Dose Ordered Sig/Lyudmila Route Start Time Stop Time Status Last Admin (Lr 1000 ml Inj) 1,000 ml @ 0 mls/hr Q0M IV 02/13/17 10:45 (NS Flush) 2 ml UNSCH PRN IVF 02/13/17 17:45 (NS Flush) 2 ml BID IVF 02/13/17 21:00 02/17/17 21:00 (Glucotrol) 10 mg DAILY PO 02/14/17 09:00 02/18/17 07:53 (LaMICtal) 100 mg BID PO 02/13/17 21:00 02/18/17 07:53 (Synthroid) 100 mcg DAILY@06 PO 02/14/17 06:00 02/18/17 04:15 (Glucophage) 1,000 mg BIDPC PO 02/14/17 09:00 02/18/17 07:53 (Spiriva Inh) 18 mcg DAILY INH 02/14/17 09:00 02/14/17 09:00 (Ambien) 5 mg HS PRN PO 02/13/17 18:15 02/16/17 22:10 Patient Own Medication PT OWN MED: Acetaminophen Pm Extra ... HS PO 02/13/17 21:00 Hold (Inderal La) 60 mg Q12HR PO 02/13/17 21:00 02/18/17 07:54 ([place] 5-325 Mg) 1 tab Q4H PRN PO 02/13/17 18:30 02/14/17 18:55 ([place] 10-325 Mg) 1 tab Q4H PRN PO 02/13/17 18:30 02/18/17 14:01 (Dilaudid Pf Inj) 0.5 mg Q3H PRN IV 02/13/17 18:30 (Morphine Inj) 4 mg Q3H PRN IV 02/13/17 18:30 (Narcan Inj) 0.4 mg UNSCH PRN IV 02/13/17 18:30 (D50w (Vial) Inj) 25 ml UNSCH PRN IV PUSH 02/13/17 18:30 (Glucagon Inj) 1 mg UNSCH PRN OTHER 02/13/17 18:30 (Colchicine) 0.6 mg BID PO 02/16/17 21:15 02/18/17 07:53 Miscellaneous Information ALL NURSING DEPARTME... UNSCH PRN .XX 02/17/17 21:19 02/18/17 21:18 (D5-NS + KCl 20 Meq Inj) 1,000 ml @ 100 mls/hr Q10H IV 02/17/17 22:24 02/18/17 07:56 (Ferrous Sulfate) 325 mg DAILY PO 02/18/17 09:00 02/18/17 07:53 (Thang Davidson) Medical Decision Making MDM Remarks (1) Cervical disc disease with myelopathy 1. Cervical spondylosis and degenerative disc disease 2. Cervical myelopathy 3. Cervical stenosis POD # 5 s/p (): 1. C6-7 anterior cervical discectomy, resection posterior osteophyte disc complex for spinal cord decompression, bilateral foraminotomy-microtechnique 2. C6-7 anterior cervical interbody fusion, composite allograft bone 3. C6-7 anterior cervical instrumentation POD # 1 s/p (): 1. C4 - C7 Laminoplasty 2. Allograft bone . DBM 3. Titanium plated and screws Mild upper thoracic spine stenosis per MRI thoracic spine MRI cervical spine this morning demonstrates post-surgical changes at C6-C7 with severe spinal stenosis and flattening of the cord with cord edema Patient with improved neurological exam to BLE but loss of coordination to LUE ( Thang Davidson) Plan Plan Remarks Speech Therapy for swallowing PT & OT Diet as tolerated MRI brain & cervical spine w/o contrast (Thang Davidson) Attending Statement I have personally seen and examined the patient on the date of this note. Pertinent documentation and study results have been reviewed by the undersigned. I have personally developed the treatment plan and performed medical decision making. Agree with findings, exam, and treatment plan as noted above. Lower extremity strength has significantly improved postoperatively. He does have some loss of coordination the left upper extremity without definite significant weakness or sensory loss. Possible mild cerebellar TIA or mild CVA with negative findings on brain MRI. MRI cervical spine images reveal moderate persistent stenosis at the C6 7 level due to some persistent displacement of the edge of the C7 lamina into the canal , but much improved compared to preoperative and appears to be sufficient room for the cord. Discussed at length the patient's family today. Continue to mobilize out of bed as tolerated. Physical therapy Inpatient rehabilitation (Martin Alvarez MD) Thang Davidson February 18, 2017 15:01 Martin Alvarez MD February 18, 2017 20:44
[2017-02-18 16:00] VITALS: BP 155/70; PULSE 66; RESP 18; TEMP 98.5; O2SAT 95
--- NOTE | 2017-02-18 16:46 | RADRPT ---
EXAM DATE/TIME: 02/18/2017 16:25 [facility] COMPARISON: No previous studies available for comparison. INDICATIONS : Left sided weakness. Post Cervical fusion. MEDICAL HISTORY : Carcinoma, prostate. SURGICAL HISTORY : Discectomy, cervical. Fusion, cervical. ENCOUNTER: Initial ACUITY: 1 day PAIN SCORE: 0/10 LOCATION: [facility] TECHNIQUE: Multiplanar, multisequence MRI of the brain was performed without contrast. FINDINGS: CEREBRUM: The ventricles are normal for age. Mild, symmetric cortical atrophy. No evidence of midline shift, ma ss lesion, hemorrhage or acute infarction. No extraaxial fluid collections are seen. The pituitary gland and suprasellar cistern are normal in configuration. WHITE MATTER: No significant signal abnormalities are seen in the white matter. POSTERIOR FOSSA: The cerebellum and brainstem are intact. The 4th ventricle is midline. The cerebellopontine angle is unremarkable. The cerebellar tonsils are normal in position. DIFFUSION IMAGING: No focal areas of restricted diffusion are seen. No evidence of acute infarction. EXTRACRANIAL: The visualized portions of the orbits are unremarkable. There is a 1.8 cm retention cyst posteriorly in the right maxillary antrum. CONCLUSION: 1. Chronic changes with mild, symmetric cortical atrophy. 2. A 1.8 cm retention cyst posteriorly in the right maxillary antrum. 3. Otherwise negative with no acute intracranial process to explain current clinical symptoms. David Murry MD on February 18, 2017 at 16:41 Board Certified Radiologist. This report was verified electronically.
--- NOTE | 2017-02-18 17:57 | RADRPT ---
EXAM DATE/TIME: 02/18/2017 16:25 [facility] COMPARISON: MRI CERVICAL SPINE W/O CONTRAST, February 16, 2017, 10:58. INDICATIONS : Extremity weakness. Left side weakness post anterior cervical disc fusion. MEDICAL HISTORY : Carcinoma, prostate. SURGICAL HISTORY : Discectomy, cervical. Fusion, cervical. ENCOUNTER: Initial ACUITY: 1 day PAIN SCORE: 0/10 LOCATION: Paraspinal TECHNIQUE: Multiplanar, multisequence MRI examination of the cervical spine was performed. FINDINGS: Sagittal T1, T2 and inversion-recovery images show extensive multilevel degenerative disc disease wit h loss of disc height and marginal spurring at just about every cervical level, most severe from C3-C 4 inferiorly. There appear to be extensive laminectomies throughout the cervical spine from C2-C3 th rough C6-C7. The posterior processes of C7 itself remain intact, however. On the prior examination, there was some postsurgical signal in the anterior epidural space at C6-C7 with a prominent disc at C5-C6 and C4-C5 which appear to result in significant spinal stenosis. I presume there has been inte rval surgery as the spinal canal appears to have been adequately decompressed. There is still some a bnormal signal in the anterior epidural space at C6-C7 but no obvious cord compromise. This same lev el shows anterior fixation. Detailed axial images as follows: C2-C3: Some uncovertebral ridging encroaching on the anterior epidural space. Spinal canal and neural leann robbi are adequate, however. C3-C4: Uncovertebral ridging encroaching on the anterior epidural space. Spinal canal and neural foramina a re adequate. Decompressive laminectomy. C4-C5: Severe uncovertebral ridging encroaching oin the anterior epidural space but the decompressive charissa ctomy avoids cord compromise. There is some encroachment on both neural foramina, right greater than left. C5-C6: Prominent spur encroaches on the anterior epidural space but the level has been effectively decompres sed with a total laminectomy. There is some encroachment on both neural foramina which could comprom ise the exiting nerve roots bilaterally. C6-C7: Prominent spur encroaching on the anterior epidural space but the spinal canal has been adequately de compressed with a total laminectomy. I believe both neural foramina are adequate. C7-T1: Some uncovertebral ridging but the spinal canal and neural foramina appear to be adequate. CONCLUSION: 1. Severe multilevel degenerative disc disease with loss of disc height and uncovertebral ridging at just about every cervical level. 2. There is anterior fixation at C6-C7 with some abnormal signal identified in the anterior epidural space at this same level. This is probably postsurgical. 3. On the prior examination, there appeared to be severe stenosis particularly at the C5-C6 and C6-C 7 level which appears to have been decompressed in the interval. Patient has extensive laminectomies from C3 through C6 on both the current and previous studies but there may have been reintervention a nd further decompression of the lower cervical levels. 4. There is some encroachment on the neural foramina most severe bilaterally at C4-C5 and C5-C6. An atomic detail is limited and the clinical significance of this is uncertain. The neural foramina jewell ear to be adequate at remaining levels. David Murry MD on February 18, 2017 at 17:20 Board Certified Radiologist. This report was verified electronically.
[2017-02-18 20:00] VITALS: BP 134/61; PULSE 70; RESP 16; TEMP 97.9; O2SAT 97
[2017-02-18] MEDS: ZOLPIDEM TARTRATE 5 MG TAB PO PRN (23:08)
[2017-02-19] VITALS: BP 151/65; PULSE 77; RESP 18; TEMP 99.4; O2SAT 95
[2017-02-19] MEDS: D5-NS + KCL 20 MEQ INJ 1,000 ML IV SCH ×3 (01:22→21:55)
[2017-02-19] MEDS: INSULIN NovoLIN REGULAR SUPPLEMENTAL SCALE SQ SCH ×4 (06:16→21:55)
[2017-02-19] MEDS: LEVOTHYROXINE SODIUM 100 MCG TAB PO SCH (06:17)
[2017-02-19] MEDS: ACETAMINOPHEN/HYDROcodone 325 MG/10 MG TAB PO PRN ×5 (06:20→23:33)
[2017-02-19 08:00] VITALS: BP 138/63; PULSE 66; RESP 18; TEMP 98.4; O2SAT 94
[2017-02-19] MEDS: FERROUS SULFATE 325 MG (65 MG ELEMENTAL IRON) TAB PO SCH (08:48)
[2017-02-19] MEDS: metFORMIN HCL 500 MG TAB PO SCH ×2 (08:48→17:14)
[2017-02-19] MEDS: glipiZIDE 10 MG TAB PO SCH (08:48)
[2017-02-19] MEDS: SODIUM CHLORIDE 0.9% FLUSH 5 ML FLUSH IVF SCH ×2 (08:49→21:45)
[2017-02-19] MEDS: lamoTRIgine 100 MG TAB PO SCH ×2 (08:49→21:44)
[2017-02-19] MEDS: PROPRANOLOL HCL LA 60 MG CAP PO SCH ×2 (08:49→21:44)
[2017-02-19] MEDS: COLCHICINE 0.6 MG TAB PO SCH ×2 (08:49→21:44)
[2017-02-19] MEDS: TIOTROPIUM BROMIDE 18 MCG INH INH SCH (08:58)
[2017-02-19] MEDS: DOCUSATE SODIUM 50 MG/SENNA 8.6 MG TAB PO SCH ×2 (10:30→21:44)
[2017-02-19 12:00] VITALS: BP 134/61; PULSE 67; RESP 18; TEMP 98.1; O2SAT 95
[2017-02-19 12:01] VITALS: O2SAT 94
--- NOTE | 2017-02-19 14:46 | HHI.NSPN ---
(Maximo Davidsonconchita SHAFER) Note Status Status: Progress Note (Thang DavidsonScott ROCKP) Interval History Interval History 02/13: The patient presented to the operating for an ACDF at the C6-7 level. Post -operatively he was admitted to a regular med/surg floor. 02/14: This morning the patient is awake & alert. He has some aching to the back of the neck. He does endorse some hoarseness but no difficulty swallowing. During the night he did have an episode that he describe like an electric shock that went from the neck down to the necks but has not had anything similar since. He does endorse intermittent numbness to the extremities. He stated Occupational Therapy felt the patient had some upper extremity weakness but he did not feel he did. 02/15: The patient is doing well when seen this afternoon. He states his neck feels stiff. He did have some dizziness earlier but relates it to not eating since he is diabetic. The dizziness resolved after he ate. He did endorse some difficulty swallowing once when he took a bite of hamburger, but none since. 02/16: Initially went to see patient this morning and he was in MRI. Nursing reported that the patient was weaker to the legs this morning and had difficulty ambulating. He reports pain across the upper back & shoulders when seen this afternoon. He also has some pain into the right leg that he describes as spasm-like. 02/17: Patient awake & alert this morning. States he is not doing to good. He states he has had some pain to the neck which the niece says are spasms. He also reports having intermittent pain that goes to the upper back/shoulder and into the arms that is scattered but radiating. A MRI of the cervical spine yesterday demonstrated persistent canal stenosis and increased cord signal intensity. His clinical exam was also worse. Therefore his transfer to [facility] was cancelled and he was placed on the OR schedule for a C4-C7 laminoplasty today. 02/18: The patient went for a C4-C7 laminoplasty yesterday due to persistent canal stenosis and worsening clinical exam. This afternoon when seen the patient is doing good. He and his family reported that he had difficulty with coordination to the left hand this morning. It still persists but is better. 02/19: The patient states he is doing fine this afternoon. He has some soreness to the back of the neck. He does endorse some swallowing difficulty since surgery. The left hand difficulty is better per patient. (Thang Davidson) Labs, Micro, & Vital Signs Results Allergies Coded Allergies Type Severity Reaction Last Updated Verified No Known Allergies 02/10/17 No Recent Impressions Brain MRI 02/18/17 0000 Signed Impressions: Service Date/Time: Saturday, February 18, 2017 16:25 - CONCLUSION: 1. Chronic changes with mild, symmetric cortical atrophy. 2. A 1.8 cm retention cyst posteriorly in the right maxillary antrum. 3. Otherwise negative with no acute intracranial process to explain current clinical symptoms. David Murry MD /// 06:00 18:00 06:00 18:00 06:00 18:00 Intake Total 480 ml 0 ml 4950 ml 1547 ml 480 ml Output Total 900 ml 450 ml 1225 ml 1785 ml 1585 ml 40 ml Balance -420 ml -450 ml 3725 ml -238 ml -1105 ml -40 ml Intake Oral 480 ml 0 ml 50 ml 720 ml 480 ml IV Total 827 ml Other 4900 ml Output Urine Total 900 ml 450 ml 700 ml 1675 ml 1550 ml Drainage Total 25 ml 110 ml 35 ml 40 ml Estimated Blood Loss 500 ml # Bowel Movements 0 0 0 Laboratory Tests Test 02/17/17 02/18/17 06:37 03:27 White Blood Count 11.8 TH/MM3 12.2 TH/MM3 Red Blood Count 3.78 MIL/MM3 3.45 MIL/MM3 Hemoglobin 11.1 GM/DL 10.4 GM/DL Hematocrit 33.6 % 30.6 % Mean Corpuscular Volume 88.9 FL 88.6 FL Mean Corpuscular Hemoglobin 29.3 PG 30.2 PG Mean Corpuscular Hemoglobin 33.0 % 34.1 % Concent Red Cell Distribution Width 12.8 % 12.9 % Platelet Count 240 TH/MM3 283 TH/MM3 Mean Platelet Volume 8.0 FL 8.1 FL Neutrophils (%) (Auto) 72.4 % 90.0 % Lymphocytes (%) (Auto) 13.1 % 4.5 % Monocytes (%) (Auto) 11.3 % 5.1 % Eosinophils (%) (Auto) 2.5 % 0.0 % Basophils (%) (Auto) 0.7 % 0.4 % Neutrophils # (Auto) 8.6 TH/MM3 11.0 TH/MM3 Lymphocytes # (Auto) 1.5 TH/MM3 0.6 TH/MM3 Monocytes # (Auto) 1.3 TH/MM3 0.6 TH/MM3 Eosinophils # (Auto) 0.3 TH/MM3 0.0 TH/MM3 Basophils # (Auto) 0.1 TH/MM3 0.0 TH/MM3 CBC Comment DIFF FINAL DIFF FINAL Differential Comment Sodium Level 135 MEQ/L 135 MEQ/L Potassium Level 4.2 MEQ/L 4.9 MEQ/L Chloride Level 100 MEQ/L 98 MEQ/L Carbon Dioxide Level 27.6 MEQ/L 24.8 MEQ/L Anion Gap 7 MEQ/L 12 MEQ/L Blood Urea Nitrogen 17 MG/DL 15 MG/DL Creatinine 0.73 MG/DL 0.70 MG/DL Estimat Glomerular Filtration 104 ML/MIN 109 ML/MIN Rate Random Glucose 166 MG/DL 228 MG/DL Calcium Level 8.9 MG/DL 8.4 MG/DL Constitutional Vital Signs Date Time Temp Pulse Resp B/P Pulse Ox O2 Delivery O2 Flow Rate FiO2 02/19/17 11:57 18 02/19/17 08:00 98.4 66 18 138/63 94 02/19/17 00:00 99.4 77 18 151/65 95 02/18/17 20:00 97.9 70 16 134/61 97 02/18/17 18:59 Nasal Cannula 2.00 02/18/17 16:00 98.5 66 18 155/70 95 02/19/17 07:00 Intake Total 1200 ml Output Total 2000 ml Balance -800 ml (Thang Davidson) Review of Systems/Exam ROS Constitutional: Patient denies any fever or chills. HEENT: Patient states he has some difficulty swallowing since surgery. He denies any hoarseness. Neck: Patient states he has some pain to the back of the neck. Respiratory: Patient denies any shortness of breath or productive cough. Cardiovascular: Patient denies chest pain, palpitations or irregular heart beat. Gastrointestinal: Patient states he hasn't had a bowel movement in a while. He denies any abdominal pain, nausea, vomiting or bowel incontinence. Genitourinary: Patient states he has a Saba in place. Extremities: Patient states he has some weakness to the legs is better. The difficulty with coordination to the left hand is improved. Neurological: Patient denies any headache, dizziness, numbness or tingling. Exam General: Awake, readily interacts, normal affect, smiles readily, NAD. Neck: [place] J cervical collar in place. Midline neck mildly TTP, no JVD, trachea midline, intact post-surgical dressing to left anterior neck minimally TTP, surgical incision well-approximated with steri-strips, no evident drainage , erythema or streaking. Posterior cervical dressing intact, ERICK drain to bulb suction with serosanguinous drainage. Respiratory: CTAB w/o W/R/R, equal excursion, non-laboured, on NC. Cardiovascular: S1S2 w/RRR w/o M/G/R, radial & pedal pulses 2+ bilaterally, cap refill < 2 sec, no pedal edema. Gastrointestinal: Abdomen soft, nontender, bowel sounds not appreciated. Musculoskeletal: REDMAN, no evident deformity, discolouration or clubbing. Neurological: AAOx3 Speech clear & appropriate Follows simple commands Some numbness to touch right anterior thigh but then states not really. Motor strength: bilateral biceps 5/5, right deltoid & tricep 5/5, left deltoid & tricep 4/5, LLE 4 to 4+/5 and RLE 3+ to 4/5. Still with difficulty doing fine motor (finger to nose, finger to thumb) (Thang Davidson) Medications Current Medications Current Medications Medications (Trade) Dose Ordered Sig/Lyudmila Route Start Time Stop Time Status Last Admin (Lr 1000 ml Inj) 1,000 ml @ 0 mls/hr Q0M IV 02/13/17 10:45 (NS Flush) 2 ml UNSCH PRN IVF 02/13/17 17:45 (NS Flush) 2 ml BID IVF 02/13/17 21:00 02/19/17 08:49 (Glucotrol) 10 mg DAILY PO 02/14/17 09:00 02/19/17 08:48 (LaMICtal) 100 mg BID PO 02/13/17 21:00 02/19/17 08:49 (Synthroid) 100 mcg DAILY@06 PO 02/14/17 06:00 02/19/17 06:17 (Glucophage) 1,000 mg BIDPC PO 02/14/17 09:00 02/19/17 08:48 (Spiriva Inh) 18 mcg DAILY INH 02/14/17 09:00 02/14/17 09:00 (Ambien) 5 mg HS PRN PO 02/13/17 18:15 02/18/17 23:08 Patient Own Medication PT OWN MED: Acetaminophen Pm Extra ... HS PO 02/13/17 21:00 Hold (Inderal La) 60 mg Q12HR PO 02/13/17 21:00 02/19/17 08:49 ([place] 5-325 Mg) 1 tab Q4H PRN PO 02/13/17 18:30 02/14/17 18:55 ([place] 10-325 Mg) 1 tab Q4H PRN PO 02/13/17 18:30 02/19/17 10:57 (Dilaudid Pf Inj) 0.5 mg Q3H PRN IV 02/13/17 18:30 (Morphine Inj) 4 mg Q3H PRN IV 02/13/17 18:30 (Narcan Inj) 0.4 mg UNSCH PRN IV 02/13/17 18:30 (D50w (Vial) Inj) 25 ml UNSCH PRN IV PUSH 02/13/17 18:30 (Glucagon Inj) 1 mg UNSCH PRN OTHER 02/13/17 18:30 Colchicine 0.6 mg 0.6 mg BID PO 02/16/17 21:15 02/19/17 08:49 (D5-NS + KCl 20 Meq Inj) 1,000 ml @ 100 mls/hr Q10H IV 02/17/17 22:24 02/18/17 07:56 (Ferrous Sulfate) 325 mg DAILY PO 02/18/17 09:00 02/19/17 08:48 (Sanjuana-Colace) 1 tab BID PO 02/19/17 10:30 (Thang Davidson) Medical Decision Making MDM Remarks (1) Cervical disc disease with myelopathy 1. Cervical spondylosis and degenerative disc disease 2. Cervical myelopathy 3. Cervical stenosis POD # 6 s/p (): 1. C6-7 anterior cervical discectomy, resection posterior osteophyte disc complex for spinal cord decompression, bilateral foraminotomy-microtechnique 2. C6-7 anterior cervical interbody fusion, composite allograft bone 3. C6-7 anterior cervical instrumentation POD # 2 s/p (): 1. C4 - C7 Laminoplasty 2. Allograft bone . DBM 3. Titanium plated and screws Mild upper thoracic spine stenosis per MRI thoracic spine MRI cervical spine this morning demonstrates post-surgical changes at C6-C7 with severe spinal stenosis and flattening of the cord with cord edema MRI brain & MRI cervical spine looked all right per Dr Wilkinson Patient with stable neurological exam, still with loss of coordination to LUE Constipation (Thang Davidson) Plan Plan Remarks Speech Therapy for swallowing PT & OT Diet as tolerated Bowel regimen (Thang Davidson) Attending Statement I have personally seen and examined the patient on the date of this note. Pertinent documentation and study results have been reviewed by the undersigned. I have personally developed the treatment plan and performed medical decision making. Agree with findings, exam, and treatment plan as noted above. A little more lethargic today but responds appropriately. No increasing confusion. Sensorimotor exam remains relatively stable today. Left upper extremity coordination continues to improve Discussed with patient and family Continue For now Laxatives Continue physical therapy CMP (Martin Alvarez MD) Thang Davidson February 19, 2017 14:46 Martin Alvarez MD February 19, 2017 17:00
[2017-02-19] MEDS ORDERED: BISACODYL 10 MG SUPP RECTAL PRN (15:00)
[2017-02-19] MEDS ORDERED: SOD PHOSPHATE/SOD BIPHOSPHATE (ADULT) ENEMA 133ML RECTAL PRN (15:00)
[2017-02-19 16:00] VITALS: BP 145/67; PULSE 72; RESP 18; TEMP 97.2; O2SAT 96
[2017-02-19 17:28] LABS: ANION GAP 9 MEQ/L (5-15); AST (GOT) 20 U/L (15-37); BICARBONATE 24.9 MEQ/L (21.0-32.0); BLOOD UREA NITROGEN 14 MG/DL (7-18); CHLORIDE 103 MEQ/L (98-107); GLOMERULAR FILTRATION RATE 97 ML/MIN (>89); POTASSIUM 4.2 MEQ/L (3.5-5.1); SODIUM (NA) 137 MEQ/L (136-145)
[2017-02-19 17:57] LABS: ALKALINE PHOSPHATASE 70 U/L (45-117); ALT (GPT) 15 U/L (12-78); TOTAL BILIRUBIN ADULT 0.4 MG/DL (0.2-1.0)
[2017-02-19 19:00] VITALS: BP 166/74; PULSE 73; RESP 16; TEMP 99.4; O2SAT 97
[2017-02-19] MEDS: ZOLPIDEM TARTRATE 5 MG TAB PO PRN (23:32)
[2017-02-20] VITALS: BP 155/67; PULSE 76; RESP 16; TEMP 99.1; O2SAT 95
[2017-02-20 04:00] VITALS: BP 152/80; PULSE 67; RESP 17; TEMP 97.6; O2SAT 95
[2017-02-20] MEDS: LEVOTHYROXINE SODIUM 100 MCG TAB PO SCH (06:43)
[2017-02-20] MEDS: INSULIN NovoLIN REGULAR SUPPLEMENTAL SCALE SQ SCH ×4 (07:00→20:41)
[2017-02-20 08:00] VITALS: BP 142/55; PULSE 65; RESP 14; TEMP 98.6; O2SAT 98
[2017-02-20] MEDS: FERROUS SULFATE 325 MG (65 MG ELEMENTAL IRON) TAB PO SCH (08:01)
[2017-02-20] MEDS: DOCUSATE SODIUM 50 MG/SENNA 8.6 MG TAB PO SCH ×2 (08:01→20:40)
[2017-02-20] MEDS: lamoTRIgine 100 MG TAB PO SCH ×2 (08:01→20:40)
[2017-02-20] MEDS: metFORMIN HCL 500 MG TAB PO SCH ×2 (08:01→16:51)
[2017-02-20] MEDS: glipiZIDE 10 MG TAB PO SCH (08:01)
[2017-02-20] MEDS: COLCHICINE 0.6 MG TAB PO SCH ×2 (08:02→20:41)
[2017-02-20] MEDS: PROPRANOLOL HCL LA 60 MG CAP PO SCH ×2 (08:02→20:41)
[2017-02-20] MEDS: MULTIVITAMIN TAB PO SCH (08:02)
[2017-02-20] MEDS: ACETAMINOPHEN/HYDROcodone 325 MG/10 MG TAB PO PRN ×4 (08:07→22:29)
[2017-02-20] MEDS: TIOTROPIUM BROMIDE 18 MCG INH INH SCH (09:00)
[2017-02-20] MEDS: SODIUM CHLORIDE 0.9% FLUSH 5 ML FLUSH IVF SCH ×2 (09:00→20:41)
[2017-02-20] MEDS: D5-NS + KCL 20 MEQ INJ 1,000 ML IV SCH ×3 (10:24→23:58)
[2017-02-20 12:00] VITALS: BP 130/65; PULSE 66; RESP 18; TEMP 97; O2SAT 99
--- NOTE | 2017-02-20 15:07 | HHI.NSPN ---
Note Status Status: Progress Note Interval History Interval History 02/13: The patient presented to the operating for an ACDF at the C6-7 level. Post -operatively he was admitted to a regular med/surg floor. 02/14: This morning the patient is awake & alert. He has some aching to the back of the neck. He does endorse some hoarseness but no difficulty swallowing. During the night he did have an episode that he describe like an electric shock that went from the neck down to the necks but has not had anything similar since. He does endorse intermittent numbness to the extremities. He stated Occupational Therapy felt the patient had some upper extremity weakness but he did not feel he did. 02/15: The patient is doing well when seen this afternoon. He states his neck feels stiff. He did have some dizziness earlier but relates it to not eating since he is diabetic. The dizziness resolved after he ate. He did endorse some difficulty swallowing once when he took a bite of hamburger, but none since. 02/16: Initially went to see patient this morning and he was in MRI. Nursing reported that the patient was weaker to the legs this morning and had difficulty ambulating. He reports pain across the upper back & shoulders when seen this afternoon. He also has some pain into the right leg that he describes as spasm-like. 02/17: Patient awake & alert this morning. States he is not doing to good. He states he has had some pain to the neck which the niece says are spasms. He also reports having intermittent pain that goes to the upper back/shoulder and into the arms that is scattered but radiating. A MRI of the cervical spine yesterday demonstrated persistent canal stenosis and increased cord signal intensity. His clinical exam was also worse. Therefore his transfer to [facility] was cancelled and he was placed on the OR schedule for a C4-C7 laminoplasty today. 02/18: The patient went for a C4-C7 laminoplasty yesterday due to persistent canal stenosis and worsening clinical exam. This afternoon when seen the patient is doing good. He and his family reported that he had difficulty with coordination to the left hand this morning. It still persists but is better. 02/19: The patient states he is doing fine this afternoon. He has some soreness to the back of the neck. He does endorse some swallowing difficulty since surgery. The left hand difficulty is better per patient. 02/20: The patient is awake & alert this afternoon and doing well.He states the neck is sore. The left hand & finger numbness is still present. He did report some numbness to the right and the first 3 digits which started during the night and is still present but has improved. He reports getting up with Physical Therapy earlier and that his legs were a "little weak." Labs, Micro, & Vital Signs Constitutional Vital Signs Date Time Temp Pulse Resp B/P Pulse Ox O2 Delivery O2 Flow Rate FiO2 02/20/17 12:00 97.0 66 18 130/65 99 02/20/17 08:00 98.6 65 14 142/55 98 02/20/17 04:00 97.6 67 17 152/80 95 02/20/17 00:00 99.1 76 16 155/67 95 02/19/17 19:00 99.4 73 16 166/74 97 02/19/17 18:37 Room Air 02/19/17 16:00 97.2 72 18 145/67 96 02/19/17 15:58 18 02/20/17 06:59 Intake Total 1568 ml Output Total 1685 ml Balance -117 ml Review of Systems/Exam ROS Constitutional: Patient denies any fever or chills. HEENT: Patient denies any hoarseness, sore throat or difficulty swallowing. Neck: Patient states he has some pain to the back of the neck. Respiratory: Patient denies any shortness of breath or productive cough. Cardiovascular: Patient denies chest pain, palpitations or irregular heart beat. Gastrointestinal: Patient states he hasn't had a bowel movement in a while. He denies any abdominal pain, nausea, vomiting or bowel incontinence. Genitourinary: Patient states he has a Saba in place. Extremities: Patient states he has some weakness to the legs is better. The difficulty with coordination to the left hand is improved. Neurological: Patient states that he still has the numbness/tingling to the left hand and the 4th & 5th digits which is better. He also states he has some numbness to the right hand and the 1st, 2nd & 3rd digits that started last nightand is better. He denies any headache or dizziness. Exam General: Awake & alert, readily interacts, normal affect, smiles readily, NAD. Neck: [place] J cervical collar in place. Midline neck mildly TTP, no JVD, trachea midline, intact post-surgical dressing to left anterior neck minimally TTP, no evident drainage, erythema or streaking. Posterior cervical dressing intact, ERICK drain to bulb suction with serosanguinous drainage. Respiratory: CTAB w/o W/R/R, equal excursion, non-laboured, on RA. Cardiovascular: S1S2 w/RRR w/o M/G/R, radial & pedal pulses 2+ bilaterally, cap refill < 2 sec, no pedal edema. Gastrointestinal: Abdomen soft, nontender, bowel sounds not appreciated. Musculoskeletal: REDMAN, no evident deformity, discolouration or clubbing. Neurological: AAOx3 Speech clear & appropriate Follows simple commands Numbness/tingling to the left hand and the 4th & 5th digits which is better, the lateral side of the 4th digit is less numb than the medial side; numbness to the right hand and the 1st, 2nd & 3rd digits, the media side of the 3rd digit is less numb than the lateral side Motor strength: bilateral biceps 5/5, right deltoid & tricep 5/5, left deltoid & tricep 4/5, LLE 4 to 4+/5 and RLE 4/5. Still with difficulty doing fine motor (finger to nose, finger to thumb) Medications Current Medications Current Medications Medications (Trade) Dose Ordered Sig/Lyudmila Route Start Time Stop Time Status Last Admin (Lr 1000 ml Inj) 1,000 ml @ 0 mls/hr Q0M IV 02/13/17 10:45 (NS Flush) 2 ml UNSCH PRN IVF 02/13/17 17:45 (NS Flush) 2 ml BID IVF 02/13/17 21:00 02/19/17 21:45 (Glucotrol) 10 mg DAILY PO 02/14/17 09:00 02/20/17 08:01 (LaMICtal) 100 mg BID PO 02/13/17 21:00 02/20/17 08:01 (Synthroid) 100 mcg DAILY@06 PO 02/14/17 06:00 02/20/17 06:43 (Glucophage) 1,000 mg BIDPC PO 02/14/17 09:00 02/20/17 08:01 (Spiriva Inh) 18 mcg DAILY INH 02/14/17 09:00 02/14/17 09:00 (Ambien) 5 mg HS PRN PO 02/13/17 18:15 02/19/17 23:32 Patient Own Medication PT OWN MED: Acetaminophen Pm Extra ... HS PO 02/13/17 21:00 Hold (Inderal La) 60 mg Q12HR PO 02/13/17 21:00 02/20/17 08:02 ([place] 5-325 Mg) 1 tab Q4H PRN PO 02/13/17 18:30 02/14/17 18:55 ([place] 10-325 Mg) 1 tab Q4H PRN PO 02/13/17 18:30 02/20/17 12:02 (Dilaudid Pf Inj) 0.5 mg Q3H PRN IV 02/13/17 18:30 (Morphine Inj) 4 mg Q3H PRN IV 02/13/17 18:30 (Narcan Inj) 0.4 mg UNSCH PRN IV 02/13/17 18:30 (D50w (Vial) Inj) 25 ml UNSCH PRN IV PUSH 02/13/17 18:30 (Glucagon Inj) 1 mg UNSCH PRN OTHER 02/13/17 18:30 Colchicine 0.6 mg 0.6 mg BID PO 02/16/17 21:15 02/20/17 08:02 (D5-NS + KCl 20 Meq Inj) 1,000 ml @ 100 mls/hr Q10H IV 02/17/17 22:24 02/18/17 07:56 (Ferrous Sulfate) 325 mg DAILY PO 02/18/17 09:00 02/20/17 08:01 (Sanjuana-Colace) 1 tab BID PO 02/19/17 10:30 02/20/17 08:01 (Dulcolax Supp) 10 mg DAILY PRN RECTAL 02/19/17 15:00 (Fleets Enema (Adult)) 133 ml Q24H PRN RECTAL 02/19/17 15:00 (Theragran) 1 tab DAILY PO 02/20/17 09:00 02/20/17 08:02 Medical Decision Making MDM Remarks (1) Cervical disc disease with myelopathy 1. Cervical spondylosis and degenerative disc disease 2. Cervical myelopathy 3. Cervical stenosis POD # 7 s/p (): 1. C6-7 anterior cervical discectomy, resection posterior osteophyte disc complex for spinal cord decompression, bilateral foraminotomy-microtechnique 2. C6-7 anterior cervical interbody fusion, composite allograft bone 3. C6-7 anterior cervical instrumentation POD # 3 s/p (): 1. C4 - C7 Laminoplasty 2. Allograft bone . DBM 3. Titanium plated and screws Mild upper thoracic spine stenosis per MRI thoracic spine MRI cervical spine this morning demonstrates post-surgical changes at C6-C7 with severe spinal stenosis and flattening of the cord with cord edema MRI brain & MRI cervical spine looked all right per Dr Wilkinson Patient with essentially stable neurological exam, numbness still persists to left hand & digits but now with some to the right hand & digits, still with loss of coordination to LUE Constipation ERICK output 85 mL past 24 hrs Plan Plan Remarks Speech Therapy for swallowing PT & OT Diet as tolerated Bowel regimen Thang Davidson February 20, 2017 15:07
[2017-02-20 16:00] VITALS: BP 147/60; PULSE 66; RESP 14; TEMP 98; O2SAT 98
[2017-02-20 20:20] VITALS: BP 162/73; PULSE 67; RESP 16; TEMP 97.8; O2SAT 95
[2017-02-20] MEDS: ZOLPIDEM TARTRATE 5 MG TAB PO PRN (22:29)
[2017-02-21] VITALS (7 sets, daily range): BP systolic 132–177; BP diastolic 63–79; PULSE 64–76; RESP 16–18; TEMP 96.6–98.8; O2SAT 96–98
[2017-02-21] MEDS: LEVOTHYROXINE SODIUM 100 MCG TAB PO SCH (05:04)
[2017-02-21] MEDS: ACETAMINOPHEN/HYDROcodone 325 MG/10 MG TAB PO PRN ×3 (05:08→20:34)
[2017-02-21] MEDS: INSULIN NovoLIN REGULAR SUPPLEMENTAL SCALE SQ SCH ×4 (07:00→20:44)
[2017-02-21] MEDS: metFORMIN HCL 500 MG TAB PO SCH ×2 (07:20→18:00)
[2017-02-21] MEDS: FERROUS SULFATE 325 MG (65 MG ELEMENTAL IRON) TAB PO SCH (07:20)
[2017-02-21] MEDS: lamoTRIgine 100 MG TAB PO SCH ×2 (07:20→20:34)
[2017-02-21] MEDS: DOCUSATE SODIUM 50 MG/SENNA 8.6 MG TAB PO SCH ×2 (07:21→20:34)
[2017-02-21] MEDS: COLCHICINE 0.6 MG TAB PO SCH ×2 (07:21→20:34)
[2017-02-21] MEDS: MULTIVITAMIN TAB PO SCH (07:21)
[2017-02-21] MEDS: glipiZIDE 10 MG TAB PO SCH (07:21)
[2017-02-21] MEDS: PROPRANOLOL HCL LA 60 MG CAP PO SCH ×2 (07:22→20:35)
[2017-02-21] MEDS: SODIUM CHLORIDE 0.9% FLUSH 5 ML FLUSH IVF SCH ×2 (09:00→20:35)
[2017-02-21] MEDS: TIOTROPIUM BROMIDE 18 MCG INH INH SCH (09:00)
[2017-02-21] MEDS: BISACODYL EC 5 MG TABEC PO SCH ×2 (11:49→20:34)
[2017-02-21] MEDS: D5-NS + KCL 20 MEQ INJ 1,000 ML IV SCH ×2 (16:24→23:21)
--- NOTE | 2017-02-21 16:29 | HHI.NSPN ---
(Maximo Davidsonconchita SHAFER) Note Status Status: Progress Note (Thang DavidsonScott ROCKP) Interval History Interval History 02/13: The patient presented to the operating for an ACDF at the C6-7 level. Post -operatively he was admitted to a regular med/surg floor. 02/14: This morning the patient is awake & alert. He has some aching to the back of the neck. He does endorse some hoarseness but no difficulty swallowing. During the night he did have an episode that he describe like an electric shock that went from the neck down to the necks but has not had anything similar since. He does endorse intermittent numbness to the extremities. He stated Occupational Therapy felt the patient had some upper extremity weakness but he did not feel he did. 02/15: The patient is doing well when seen this afternoon. He states his neck feels stiff. He did have some dizziness earlier but relates it to not eating since he is diabetic. The dizziness resolved after he ate. He did endorse some difficulty swallowing once when he took a bite of hamburger, but none since. 02/16: Initially went to see patient this morning and he was in MRI. Nursing reported that the patient was weaker to the legs this morning and had difficulty ambulating. He reports pain across the upper back & shoulders when seen this afternoon. He also has some pain into the right leg that he describes as spasm-like. 02/17: Patient awake & alert this morning. States he is not doing to good. He states he has had some pain to the neck which the niece says are spasms. He also reports having intermittent pain that goes to the upper back/shoulder and into the arms that is scattered but radiating. A MRI of the cervical spine yesterday demonstrated persistent canal stenosis and increased cord signal intensity. His clinical exam was also worse. Therefore his transfer to [facility] was cancelled and he was placed on the OR schedule for a C4-C7 laminoplasty today. 02/18: The patient went for a C4-C7 laminoplasty yesterday due to persistent canal stenosis and worsening clinical exam. This afternoon when seen the patient is doing good. He and his family reported that he had difficulty with coordination to the left hand this morning. It still persists but is better. 02/19: The patient states he is doing fine this afternoon. He has some soreness to the back of the neck. He does endorse some swallowing difficulty since surgery. The left hand difficulty is better per patient. 02/20: The patient is awake & alert this afternoon and doing well.He states the neck is sore. The left hand & finger numbness is still present. He did report some numbness to the right and the first 3 digits which started during the night and is still present but has improved. He reports getting up with Physical Therapy earlier and that his legs were a "little weak. 02/21: The patient is doing well this afternoon. He states he has some pain to the neck. He endorses numbness to the extremities without any change. He did report a little earlier this afternoon he had an episode where the right thigh was jumping briefly. It resolved and he has not had any further episodes. There was no pain associated with the episode. He does state that the drain was removed from his neck earlier by the RN. Nursing reports that he should be able to go to [facility] tomorrow. (Thang Davidson) Labs, Micro, & Vital Signs Constitutional Vital Signs Date Time Temp Pulse Resp B/P Pulse Ox O2 Delivery O2 Flow Rate FiO2 02/21/17 12:40 97.2 69 18 132/69 97 02/21/17 08:08 96.6 68 16 144/63 96 02/21/17 04:15 97.8 65 16 157/74 96 02/21/17 00:20 98.8 75 16 172/71 96 02/20/17 20:20 97.8 67 16 162/73 95 02/21/17 07:00 Intake Total 1080 ml Output Total 1995 ml Balance -915 ml (Thang Davidson) Review of Systems/Exam ROS Constitutional: Patient denies any fever or chills. HEENT: Patient denies any hoarseness, sore throat or difficulty swallowing. Neck: Patient states he has some pain to the back of the neck. Respiratory: Patient denies any shortness of breath or productive cough. Cardiovascular: Patient denies chest pain, palpitations or irregular heart beat. Gastrointestinal: Patient denies any abdominal pain, nausea, vomiting or bowel incontinence. Genitourinary: Patient states he has a Saba in place. Extremities: Patient states that the right thigh was "jumping" briefly and resolved on its own earlier, he has not had any other episodes of it. He does say the legs are weak but better. He denies any pain to the extremities. Neurological: Patient states that he still has the numbness/tingling to the arms and legs without any change. He denies any headache or dizziness. Exam General: Awake & alert, readily interacts, normal affect, smiles readily, NAD. Neck: earthmine cervical collar is off. Midline neck mildly TTP, no JVD, trachea midline. Intact dressing to left anterior neck minimally TTP, no evident drainage, erythema or streaking. Posterior cervical incision dressing intact without any evidence of drainage, erythema or streaking. Respiratory: CTAB w/o W/R/R, equal excursion, non-laboured, on RA. Cardiovascular: S1S2 w/RRR w/o M/G/R, radial & pedal pulses 2+ bilaterally, cap refill < 2 sec, no pedal edema. Gastrointestinal: Abdomen soft, nontender, positive bowel sounds. Musculoskeletal: REDMAN, no evident deformity, discolouration or clubbing. Neurological: AAOx3 Speech clear & appropriate Follows simple commands Numbness/tingling to the left hand and the 4th & 5th digits same, the lateral side of the 4th digit is less numb than the medial side; numbness to the right hand and the 1st, 2nd & 3rd digits, the media side of the 3rd digit is less numb than the lateral side. Numbness to the BLE same. Motor strength: bilateral biceps 5/5, right deltoid & tricep 5/5, left deltoid & tricep 4/5, LLE 4 to 4+/5 and RLE 4/5. (Thang Davidson) Medications Current Medications Current Medications Medications (Trade) Dose Ordered Sig/Lyudmila Route Start Time Stop Time Status Last Admin (Lr 1000 ml Inj) 1,000 ml @ 0 mls/hr Q0M IV 02/13/17 10:45 (NS Flush) 2 ml UNSCH PRN IVF 02/13/17 17:45 (NS Flush) 2 ml BID IVF 02/13/17 21:00 02/20/17 20:41 (Glucotrol) 10 mg DAILY PO 02/14/17 09:00 02/21/17 07:21 (LaMICtal) 100 mg BID PO 02/13/17 21:00 02/21/17 07:20 (Synthroid) 100 mcg DAILY@06 PO 02/14/17 06:00 02/21/17 05:04 (Glucophage) 1,000 mg BIDPC PO 02/14/17 09:00 02/21/17 07:20 (Spiriva Inh) 18 mcg DAILY INH 02/14/17 09:00 02/14/17 09:00 (Ambien) 5 mg HS PRN PO 02/13/17 18:15 02/20/17 22:29 Patient Own Medication PT OWN MED: Acetaminophen Pm Extra ... HS PO 02/13/17 21:00 Hold (Inderal La) 60 mg Q12HR PO 02/13/17 21:00 02/21/17 07:22 ([place] 5-325 Mg) 1 tab Q4H PRN PO 02/13/17 18:30 02/14/17 18:55 ([place] 10-325 Mg) 1 tab Q4H PRN PO 02/13/17 18:30 02/21/17 11:50 (Dilaudid Pf Inj) 0.5 mg Q3H PRN IV 02/13/17 18:30 (Morphine Inj) 4 mg Q3H PRN IV 02/13/17 18:30 (Narcan Inj) 0.4 mg UNSCH PRN IV 02/13/17 18:30 (D50w (Vial) Inj) 25 ml UNSCH PRN IV PUSH 02/13/17 18:30 (Glucagon Inj) 1 mg UNSCH PRN OTHER 02/13/17 18:30 Colchicine 0.6 mg 0.6 mg BID PO 02/16/17 21:15 02/21/17 07:21 (D5-NS + KCl 20 Meq Inj) 1,000 ml @ 100 mls/hr Q10H IV 02/17/17 22:24 02/18/17 07:56 (Ferrous Sulfate) 325 mg DAILY PO 02/18/17 09:00 02/21/17 07:20 (Sanjuana-Colace) 1 tab BID PO 02/19/17 10:30 02/21/17 07:21 (Dulcolax Supp) 10 mg DAILY PRN RECTAL 02/19/17 15:00 (Fleets Enema (Adult)) 133 ml Q24H PRN RECTAL 02/19/17 15:00 (Theragran) 1 tab DAILY PO 02/20/17 09:00 02/21/17 07:21 (Dulcolax Ec) 10 mg BID PO 02/21/17 11:30 02/21/17 11:49 (Thang Davidson) Medical Decision Making MDM Remarks (1) Cervical disc disease with myelopathy 1. Cervical spondylosis and degenerative disc disease 2. Cervical myelopathy 3. Cervical stenosis POD # 8 s/p (): 1. C6-7 anterior cervical discectomy, resection posterior osteophyte disc complex for spinal cord decompression, bilateral foraminotomy-microtechnique 2. C6-7 anterior cervical interbody fusion, composite allograft bone 3. C6-7 anterior cervical instrumentation POD # 4 s/p (): 1. C4 - C7 Laminoplasty 2. Allograft bone . DBM 3. Titanium plated and screws Mild upper thoracic spine stenosis per MRI thoracic spine MRI cervical spine this morning demonstrates post-surgical changes at C6-C7 with severe spinal stenosis and flattening of the cord with cord edema MRI brain & MRI cervical spine looked all right per Dr Wilkinson Patient with essentially stable neurological exam, numbness without any change, still with loss of coordination to LUE (Thang Davidson) Plan Plan Remarks Speech Therapy for swallowing PT & OT Diet as tolerated Bowel regimen Plan for d/c to [facility] tomorrow (Thang Davidson) Attending Statement The exam, history, and the medical decision-making described in the above note were completed with the assistance of the mid-level provider. I reviewed and agree with the findings presented. I attest that I had a [id number] encounter with the patient on the same day, and personally performed and documented my assessment and findings in the medical record. Continue PT,OT,ST Exam stable. D/C to rehab OK (Martin Alvarez MD) Thang Davidson February 21, 2017 16:29 Martin Alvarez MD Apr 04, 2017 16:31
[2017-02-21] MEDS: ZOLPIDEM TARTRATE 5 MG TAB PO PRN (22:33)
[2017-02-22] MEDS: ACETAMINOPHEN/HYDROcodone 325 MG/10 MG TAB PO PRN ×5 (00:34→15:36)
[2017-02-22 03:55] VITALS: BP 146/65; PULSE 61; RESP 17; TEMP 98.2; O2SAT 96
[2017-02-22] MEDS: LEVOTHYROXINE SODIUM 100 MCG TAB PO SCH (05:52)
[2017-02-22] MEDS: INSULIN NovoLIN REGULAR SUPPLEMENTAL SCALE SQ SCH ×3 (06:28→15:39)
[2017-02-22] MEDS: DOCUSATE SODIUM 50 MG/SENNA 8.6 MG TAB PO SCH (07:18)
[2017-02-22] MEDS: glipiZIDE 10 MG TAB PO SCH (07:18)
[2017-02-22] MEDS: PROPRANOLOL HCL LA 60 MG CAP PO SCH (07:18)
[2017-02-22] MEDS: FERROUS SULFATE 325 MG (65 MG ELEMENTAL IRON) TAB PO SCH (07:18)
[2017-02-22] MEDS: MULTIVITAMIN TAB PO SCH (07:18)
[2017-02-22] MEDS: COLCHICINE 0.6 MG TAB PO SCH (07:18)
[2017-02-22] MEDS: metFORMIN HCL 500 MG TAB PO SCH (07:18)
[2017-02-22] MEDS: lamoTRIgine 100 MG TAB PO SCH (07:19)
[2017-02-22 07:34] VITALS: BP 155/70; PULSE 59; RESP 18; TEMP 98.3; O2SAT 93
[2017-02-22] MEDS: SODIUM CHLORIDE 0.9% FLUSH 5 ML FLUSH IVF SCH (09:00)
[2017-02-22] MEDS: BISACODYL EC 5 MG TABEC PO SCH (09:00)
[2017-02-22] MEDS: TIOTROPIUM BROMIDE 18 MCG INH INH SCH (09:00)
[2017-02-22 11:10] VITALS: BP 182/78; PULSE 68; RESP 18; TEMP 97.9; O2SAT 95
--- NOTE | 2017-02-22 13:24 | HHI.NSPN ---
(Maximo Davidsonconchita SHAFER) Note Status Status: Progress Note (Thang DavidsonScott ROCKP) Interval History Interval History 02/13: The patient presented to the operating for an ACDF at the C6-7 level. Post -operatively he was admitted to a regular med/surg floor. 02/14: This morning the patient is awake & alert. He has some aching to the back of the neck. He does endorse some hoarseness but no difficulty swallowing. During the night he did have an episode that he describe like an electric shock that went from the neck down to the necks but has not had anything similar since. He does endorse intermittent numbness to the extremities. He stated Occupational Therapy felt the patient had some upper extremity weakness but he did not feel he did. 02/15: The patient is doing well when seen this afternoon. He states his neck feels stiff. He did have some dizziness earlier but relates it to not eating since he is diabetic. The dizziness resolved after he ate. He did endorse some difficulty swallowing once when he took a bite of hamburger, but none since. 02/16: Initially went to see patient this morning and he was in MRI. Nursing reported that the patient was weaker to the legs this morning and had difficulty ambulating. He reports pain across the upper back & shoulders when seen this afternoon. He also has some pain into the right leg that he describes as spasm-like. 02/17: Patient awake & alert this morning. States he is not doing to good. He states he has had some pain to the neck which the niece says are spasms. He also reports having intermittent pain that goes to the upper back/shoulder and into the arms that is scattered but radiating. A MRI of the cervical spine yesterday demonstrated persistent canal stenosis and increased cord signal intensity. His clinical exam was also worse. Therefore his transfer to [facility] was cancelled and he was placed on the OR schedule for a C4-C7 laminoplasty today. 02/18: The patient went for a C4-C7 laminoplasty yesterday due to persistent canal stenosis and worsening clinical exam. This afternoon when seen the patient is doing good. He and his family reported that he had difficulty with coordination to the left hand this morning. It still persists but is better. 02/19: The patient states he is doing fine this afternoon. He has some soreness to the back of the neck. He does endorse some swallowing difficulty since surgery. The left hand difficulty is better per patient. 02/20: The patient is awake & alert this afternoon and doing well.He states the neck is sore. The left hand & finger numbness is still present. He did report some numbness to the right and the first 3 digits which started during the night and is still present but has improved. He reports getting up with Physical Therapy earlier and that his legs were a "little weak. 02/21: The patient is doing well this afternoon. He states he has some pain to the neck. He endorses numbness to the extremities without any change. He did report a little earlier this afternoon he had an episode where the right thigh was jumping briefly. It resolved and he has not had any further episodes. There was no pain associated with the episode. He does state that the drain was removed from his neck earlier by the RN. Nursing reports that he should be able to go to [facility] tomorrow. 02/22: The patient is doing good when seen. He does have some pain to the back of the neck he describes as soreness. The numbness to the extremities is without change but he did say when he crosses his ankles he isn't sure how they are when he tries to uncross them without looking at them. (Thang Davidson) Labs, Micro, & Vital Signs Constitutional Vital Signs Date Time Temp Pulse Resp B/P Pulse Ox O2 Delivery O2 Flow Rate FiO2 02/22/17 07:34 98.3 59 18 155/70 93 02/22/17 03:55 98.2 61 17 146/65 96 02/21/17 23:45 97.4 64 17 167/69 98 02/21/17 20:30 96.8 76 18 177/79 96 02/21/17 14:50 97.6 70 16 139/70 97 02/22/17 07:00 Intake Total 1900 ml Output Total 2625 ml Balance -725 ml (Thang Davidson) Review of Systems/Exam ROS Constitutional: Patient denies any fever or chills. HEENT: Patient denies any hoarseness, sore throat or difficulty swallowing. Neck: Patient states he has some pain to the back of the neck. Respiratory: Patient denies any shortness of breath or productive cough. Cardiovascular: Patient denies chest pain, palpitations or irregular heart beat. Gastrointestinal: Patient denies any abdominal pain, nausea, vomiting or bowel incontinence. Genitourinary: Patient states he has a Saba in place. Extremities: Patient states the weakness to the legs is better. He denies any pain to the extremities. Neurological: Patient states that he still has the numbness/tingling to the arms and legs without any change. He reports that when he crosses his ankles he isn't sure how to uncross them unless he looks due to the numbness. He denies any headache or dizziness. Exam General: Awake & alert, readily interacts, normal affect, smiles readily, NAD. Neck: In Erin cervical collar. Midline neck mildly TTP, no JVD, trachea midline. Intact dressing to left anterior neck minimally TTP, no evident drainage, erythema or streaking, well approximated with steri-strips intact. Posterior cervical incision dressing intact without any evidence of drainage, erythema or streaking. Respiratory: CTAB w/o W/R/R, equal excursion, non-laboured, on RA. Cardiovascular: S1S2 w/RRR w/o M/G/R, radial & pedal pulses 2+ bilaterally, cap refill < 2 sec, no pedal edema. Gastrointestinal: Abdomen soft, nontender, positive bowel sounds. Musculoskeletal: REDMAN, no evident deformity, discolouration or clubbing. Neurological: AAOx3 Speech clear & appropriate Follows simple commands Numbness/tingling to the left hand and the 4th & 5th digits same, the lateral side of the 4th digit is less numb than the medial side; numbness to the right hand and the 1st, 2nd & 3rd digits, the media side of the 3rd digit is less numb than the lateral side. Numbness to the BLE same. Motor strength: bilateral biceps 5/5, right deltoid & tricep 5/5, left deltoid & tricep 4/5, LLE 4 to 4+/5 and RLE 4/5. (Thang Davidson) Medications Current Medications Current Medications Medications (Trade) Dose Ordered Sig/Lyudmila Route Start Time Stop Time Status Last Admin (Lr 1000 ml Inj) 1,000 ml @ 0 mls/hr Q0M IV 02/13/17 10:45 (NS Flush) 2 ml UNSCH PRN IVF 02/13/17 17:45 (NS Flush) 2 ml BID IVF 02/13/17 21:00 02/22/17 09:00 (Glucotrol) 10 mg DAILY PO 02/14/17 09:00 02/22/17 07:18 (LaMICtal) 100 mg BID PO 02/13/17 21:00 02/22/17 07:19 (Synthroid) 100 mcg DAILY@06 PO 02/14/17 06:00 02/22/17 05:52 (Glucophage) 1,000 mg BIDPC PO 02/14/17 09:00 02/22/17 07:18 (Spiriva Inh) 18 mcg DAILY INH 02/14/17 09:00 02/22/17 09:00 (Ambien) 5 mg HS PRN PO 02/13/17 18:15 02/21/17 22:33 Patient Own Medication PT OWN MED: Acetaminophen Pm Extra ... HS PO 02/13/17 21:00 Hold (Inderal La) 60 mg Q12HR PO 02/13/17 21:00 02/22/17 07:18 ([place] 5-325 Mg) 1 tab Q4H PRN PO 02/13/17 18:30 02/14/17 18:55 ([place] 10-325 Mg) 1 tab Q4H PRN PO 02/13/17 18:30 02/22/17 11:25 (Dilaudid Pf Inj) 0.5 mg Q3H PRN IV 02/13/17 18:30 (Morphine Inj) 4 mg Q3H PRN IV 02/13/17 18:30 (Narcan Inj) 0.4 mg UNSCH PRN IV 02/13/17 18:30 (D50w (Vial) Inj) 25 ml UNSCH PRN IV PUSH 02/13/17 18:30 (Glucagon Inj) 1 mg UNSCH PRN OTHER 02/13/17 18:30 Colchicine 0.6 mg 0.6 mg BID PO 02/16/17 21:15 02/22/17 07:18 (D5-NS + KCl 20 Meq Inj) 1,000 ml @ 100 mls/hr Q10H IV 02/17/17 22:24 02/18/17 07:56 (Ferrous Sulfate) 325 mg DAILY PO 02/18/17 09:00 02/22/17 07:18 (Sanjuana-Colace) 1 tab BID PO 02/19/17 10:30 02/22/17 07:18 (Dulcolax Supp) 10 mg DAILY PRN RECTAL 02/19/17 15:00 (Fleets Enema (Adult)) 133 ml Q24H PRN RECTAL 02/19/17 15:00 (Theragran) 1 tab DAILY PO 02/20/17 09:00 02/22/17 07:18 (Dulcolax Ec) 10 mg BID PO 02/21/17 11:30 02/21/17 11:49 (Thang Davidson) Medical Decision Making MDM Remarks (1) Cervical disc disease with myelopathy 1. Cervical spondylosis and degenerative disc disease 2. Cervical myelopathy 3. Cervical stenosis POD # 9 s/p (): 1. C6-7 anterior cervical discectomy, resection posterior osteophyte disc complex for spinal cord decompression, bilateral foraminotomy-microtechnique 2. C6-7 anterior cervical interbody fusion, composite allograft bone 3. C6-7 anterior cervical instrumentation POD # 5 s/p (): 1. C4 - C7 Laminoplasty 2. Allograft bone . DBM 3. Titanium plated and screws Mild upper thoracic spine stenosis per MRI thoracic spine MRI cervical spine this morning demonstrates post-surgical changes at C6-C7 with severe spinal stenosis and flattening of the cord with cord edema MRI brain & MRI cervical spine looked all right per Dr Wilkinson Patient with stable neurological exam, numbness without any change (Thang Davidson) Plan Plan Remarks Will d/c to [facility] this afternoon Diet as tolerated Bowel regimen (Thang Davidson) Attending Statement The exam, history, and the medical decision-making described in the above note were completed with the assistance of the mid-level provider. I reviewed and agree with the findings presented. I attest that I had a [id number] encounter with the patient on the same day, and personally performed and documented my assessment and findings in the medical record. No neuro changes Stable for rehab. D/W patient and family (Martin Alvarez MD) Thang Davidson February 22, 2017 13:24 Martin Alvarez MD Apr 04, 2017 16:32
[2017-02-22] MEDS ORDERED: COLC1TAB15 PO (14:15)
[2017-02-22] MEDS ORDERED: SENN1TAB PO (14:15)
[2017-02-22] MEDS ORDERED: FLEE5TAB PO (14:15)
[2017-02-22] MEDS ORDERED: BISA10R RECTAL (14:15)
[2017-02-22] MEDS ORDERED: FLEEENE3 RECTAL (14:15)
--- NOTE | 2017-02-22 14:32 | HHI.DCPOC ---
Discharge Care Plan Diagnosis: (1) Cervical disc disease with myelopathy Your Health Problems Are: Difficulty with ADL Exercise Tolerance Goals to Promote Your Health * To prevent worsening of your condition and complications Wear the cervical collar when sitting up or out of bed * To maintain your health at the optimal level Directions to Meet Your Goals Take your medications as prescribed Follow your dietary instruction Follow activity as directed Keep your appointments as scheduled Take your immunizations and boosters as scheduled If your symptoms worsen call your PCP, if no PCP go to Urgent Care Center or Emergency Room Smoking is Dangerous to Your Health. Avoid second hand smoke Call the 24-hour hour crisis hotline for domestic abuse at Thang Davidson February 22, 2017 14:32
--- NOTE | 2017-02-22 14:42 | HHI.DS ---
Discharge Summary Admission Date February 16, 2017 at 20:59 Discharge Date: February 22, 2017 Admitting Diagnosis (1) Cervical disc disease with myelopathy 1. Cervical spondylosis and degenerative disc disease 2. Cervical myelopathy 3. Cervical stenosis (1) Cervical disc disease with myelopathy ICD Code: M50.00 Procedures Procedure #1 (): 1. C6-7 anterior cervical discectomy, resection posterior osteophyte disc complex for spinal cord decompression, bilateral foraminotomy-microtechnique 2. C6-7 anterior cervical interbody fusion, composite allograft bone 3. C6-7 anterior cervical instrumentation Procedure #2 (): 1. C4 - C7 Laminoplasty 2. Allograft bone . DBM 3. Titanium plated and screws Brief History CBC/BMP: 02/18/17 0327 02/19/17 1613 Significant Findings Laboratory Tests Test 02/19/17 16:13 Random Glucose 108 MG/DL (74-106) Calcium Level 8.3 MG/DL (8.5-10.1) Albumin 2.5 GM/DL (3.4-5.0) Thyroid Stimulating Hormone 0.333 uIU/ML 3rd Gen (0.358-3.740) Hospital Course The patient presented to [facility] on to undergo an ACDF due to cervical stenosis with myelopathy. Post-operatively he had a worsening clinical picture and an MRI of the cervical spine demonstrated persistent canal stenosis and increased cord signal intensity. Therefore he returned to the operating for a C4-C7 laminoplasty on . He has had some improvement in his symptoms. He has been on a regular med/surg floor after both surgeries. Pt Condition on Discharge: Good Discharge Disposition: Rehab Inpatient Discharge Instructions DIET: Follow Instructions for: As Tolerated, No Restrictions ACTIVITIES You can perform: Full Weight Bearing Activities to Avoid: Lifting/Bending, Strenuous Activity ADDITIONAL Activity Instructio: Wear the cervical collar when sitting up or out of bed. Additional Information Avoid showering until . After that you may shower and let the water run over the steri-strips. Let them fall off on their own. Follow up in 2 weeks in the office with Dr Alvarez. Thang Davidson February 22, 2017 14:42
[2017-02-22] MEDS ORDERED: FERR325T PO (16:37)
[2017-03-09] MEDS ORDERED: [UNRECOGNIZED DRUG - OTHER] (09:36)
[2017-03-09] MEDS ORDERED: WHEEMIS3 (09:36)
[2017-03-09] MEDS ORDERED: COMMODE 3-IN-11 MIS (09:36)
[2017-03-09] MEDS ORDERED: GETGO ROLLING W1 MI1 (09:36)
[2017-03-13] MEDS ORDERED: FERR200T PO ×2 (11:17→13:18)
[2017-03-13] MEDS ORDERED: SPIRCAP INH (13:18)
[2017-03-13] MEDS ORDERED: GLIP5 PO (13:18)
[2017-03-13] MEDS ORDERED: LISI10TA3 PO (13:18)
[2017-03-13] MEDS ORDERED: SYNT88TA PO (13:18)
[2017-03-13] MEDS ORDERED: METF850 PO (13:18)
[2017-03-13] MEDS ORDERED: ACET1TAB86 PO (13:18)
[2017-03-13] MEDS ORDERED: ALLO100 PO (13:18)
[2017-03-13] MEDS ORDERED: LAMO100T PO (13:18)
[2017-03-13] MEDS ORDERED: PROP60TA PO (13:18)
[2017-03-13] MEDS ORDERED: AMLO5 PO (13:18)
[2017-03-14] MEDS ORDERED: HYDR-3516 PO (09:02)
[2017-03-14] MEDS ORDERED: ALPR.25 PO (09:02)
[2017-03-14] MEDS ORDERED: ZOLP5TAB3 PO (09:02)
== END 2017-02-22 16:06 | DRG 472 ==
LOC: HSDC 09:31 → EDSTATUS 12:00 → N06A 18:52 → OBSVTOIN 02-16 20:59
PROVIDERS: ADMIT Neurological Surgery; ATTEND Neurological Surgery
PROC: 0RT30ZZ Resection of Cervical Vertebral Disc, Open Approach (ICD-10-PCS; 2017-02-13)
PROC: 0RG10K0 Fusion of Cervical Vertebral Joint with Nonautologous Tissue Substitute, Anterior Approach, Anterior Column, Open Approach (ICD-10-PCS; principal; 2017-02-13 13:17)
PROC: 00NW0ZZ Release Cervical Spinal Cord, Open Approach (ICD-10-PCS; 2017-02-17)
PROC: 0PU30JZ Supplement Cervical Vertebra with Synthetic Substitute, Open Approach (ICD-10-PCS; 2017-02-17)
DX: M50.023 Cervical disc disorder at C6-C7 level with myelopathy (principal); M47.12 Other spondylosis with myelopathy, cervical region; M48.02 Spinal stenosis, cervical region; J44.9 Chronic obstructive pulmonary disease, unspecified; E11.9 Type 2 diabetes mellitus without complications; Z79.84 Long term (current) use of oral hypoglycemic drugs; E03.9 Hypothyroidism, unspecified; N18.2 Chronic kidney disease, stage 2 (mild); F31.9 Bipolar disorder, unspecified; Z85.46 Personal history of malignant neoplasm of prostate; Z92.3 Personal history of irradiation; Z87.891 Personal history of nicotine dependence
CPT/HCPCS: 70551; 71010; 72040; 72141; 72157; 76000; 80048; 80053; 82948; 84443; 85025; 85610; 85730; 93005; 94150; A9579; C1713; G8996-GN; G8997-GN; G8998-GN; J0131; J0690; J1580; J2250; J2270; J2370; J2405; J3010; J3480; J7040; J7120; L0150; L0172

== ENCOUNTER → 2017-08-17 | Outpatient (CLI) | payer MEDICARE ==
[~2017-08-17] MED LIST changes: -ACET25TA4 PO; +ACET325T15 PO; +ALLO100 PO; +ALPR.25 PO; +AMLO5 PO; +BACL10TA PO; +COMMODE 3-IN-11 MIS; +FERR200T PO; +GETGO ROLLING W1 MI1; -GLIP10TA6 PO; +GLIP5 PO; +IBUP1TAB5 PO; +LAMO100T PO; -LEVO100T5 PO; +LISI10TA3 PO; -METF1000 PO; +METF850 PO; +SPIRCAP INH; +SYNT88TA PO; +WHEEMIS3; +[UNRECOGNIZED DRUG - OTHER]
[2017-08-17 11:06] LABS: AUTOMATED NEUTROPHIL # 8.2 TH/MM3 (1.8-7.7); BASOPHIL # 0.1 TH/MM3 (0-0.2); BASOPHIL % 1.2 % (0.0-2.0); EOSINOPHIL # 0.8 TH/MM3 (0-0.4); EOSINOPHIL % 6.6 % (0.0-4.0); HEMATOCRIT 41.2 % (39.0-51.0); HEMO FLAGS DIFF FINAL; LYMPH % 12.5 % (9.0-44.0); LYMPHOCYTE # 1.4 TH/MM3 (1.0-4.8); MEAN CELL VOLUME 90.2 FL (80.0-100.0); MEAN CORPUSCULAR HGB CONC 33.3 % (32.0-36.0); MONO % 7.7 % (0.0-8.0); PLATELET COUNT 301 TH/MM3 (150-450); RED BLOOD COUNT 4.57 MIL/MM3 (4.50-5.90); RED CELL DISTRIBUTION WIDTH 14.5 % (11.6-17.2); WHITE BLOOD COUNT 11.5 TH/MM3 (4.0-11.0)
[2017-08-17 11:28] LABS: ANION GAP 10 MEQ/L (5-15); AST (GOT) 12 U/L (15-37); BICARBONATE 25.1 MEQ/L (21.0-32.0); CHLORIDE 101 MEQ/L (98-107); GLOMERULAR FILTRATION RATE 87 ML/MIN (>89); GLUCOSE,FASTING 173 MG/DL (74-99); POTASSIUM 4.9 MEQ/L (3.5-5.1); SODIUM (NA) 136 MEQ/L (136-145)
[2017-08-17 11:40] LABS: ALKALINE PHOSPHATASE 81 U/L (45-117); ALT (GPT) 21 U/L (12-78); BLOOD UREA NITROGEN 16 MG/DL (7-18); THYROXINE (T4) 12.6 MCG/DL (4.5-12.1); TOTAL BILIRUBIN ADULT 0.6 MG/DL (0.2-1.0)
--- NOTE | 2017-08-17 16:08 | EKG ---
Date Performed: 08/17/2017 Time Performed: 10:16:04 PTAGE: 81 years EKG: Sinus rhythm . Leftward axis Borderline ECG PREVIOUS TRACING : 02/13/2017 10.54 Compared to prior tracing no significant change DOCTOR: Lian Reaves Interpretating Date/Time 08/17/2017 16:05:35
== END ==
LOC: HCAV 10:07
PROVIDERS: ATTEND Psychiatry & Neurology Psychiatry
DX: F31.32 Bipolar disorder, current episode depressed, moderate (principal); R94.31 Abnormal electrocardiogram [ECG] [EKG]
CPT/HCPCS: 36415; 80053; 84436; 84443; 85025; 93005